=== PATIENT | male | born 1960 | race Caucasian/White ===

== ENCOUNTER 2019-07-07 14:19 | Inpatient (IN) | payer MEDICAID ==
[~2019-07-07] VITALS: Ht 175.2 cm; Wt 90.7 kg
[2019-07-07] MEDS ORDERED: ADVAIR 250/501 EA PO (15:59)
[2019-07-07] MEDS ORDERED: ATIVAN1 MG PO (15:59)
[2019-07-07] MEDS ORDERED: BENZTROPINE MESY1 MG PO (16:00)
[2019-07-07] MEDS ORDERED: DILTIAZEM240 M1 PO (16:01)
[2019-07-07] MEDS ORDERED: FLONASE ALLERG9.9 ML NAS (16:05)
[2019-07-07] MEDS ORDERED: ELIQUIS5 M1 PO (16:05)
[2019-07-07] MEDS ORDERED: MAGNESIUM400 MG PO (16:06)
[2019-07-07] MEDS ORDERED: LASIX20 MG PO (16:06)
[2019-07-07] MEDS ORDERED: OMEPRAZOLE MAGN20 MG PO (16:07)
[2019-07-07] MEDS ORDERED: MULTIVITAMINS1 EAC5 PO (16:07)
[2019-07-07] MEDS ORDERED: SPIRIVA18 MCG PO (16:08)
[2019-07-07] MEDS ORDERED: RISPERDAL3 M1 PO (16:08)
[2019-07-07] MEDS ORDERED: FLOMAX0.4 MG PO (16:09)
[2019-07-07] MEDS ORDERED: TRAZODONE100 MG PO (16:09)
[2019-07-07] MEDS ORDERED: MELATONIN3 MG PO (16:10)
[2019-07-07] MEDS ORDERED: VITAMIN E400 UNI2 PO (16:10)
[2019-07-07] MEDS ORDERED: ZYPREXA10 M2 IM (16:11)
[2019-07-07] MEDS ORDERED: POTASSIUM CHLO10 ME4 PO (16:13)
[2019-07-07] MEDS ORDERED: PROAIR HFA8.5 GM INH (16:14)
[2019-07-07] MEDS ORDERED: ZOFRAN4 MG PO (16:15)
[2019-07-07] MEDS ORDERED: TYLENOL EXTRA500 MG PO (16:22)
[2019-07-07] MEDS ORDERED: REMERON15 M2 PO (16:54)
--- NOTE | 2019-07-07 20:30 | NUR ---
DALTON BRYANT a 59 year old M admitted via stretcher from the ADMITTING as a voluntary BY POA admission. Arrived on unit at 2030. ALLERGIES: SULFA, ASPIRIN, NSAIDS. Vital signs are: 97.4-88-18 135/70 SPO2 97%RA. The client'S POA VERBALLY CONSENTED TO the following forms with stated understanding: Authorization For The Release of Medical Information, Clothing List, Consent to Voluntary Admission and Hospitalization, Consent and Release Forms/Receipt of Rights, Acknowledgement of Advance Directive Information, Behavioral Health Consent Form, and Informed Consent of Medications. WITNESSED X2 RNs. Admitted under the services of Dr. MAIN HOWELL,[facility]. A search was conducted and hazardous articles were removed. Client was oriented to the unit. ALAINA SOLANO
[2019-07-07 20:54] VITALS: BP 135/70
--- NOTE | 2019-07-07 21:12 | NUR ---
DR MCCORMICK ANSWERING PHONE FOR HOSPITALIST DR SERRANO. FULL UPDATE PROVIDED. MED REC READY FOR REVIEW
--- NOTE | 2019-07-07 21:40 | NUR ---
PT IN DINING ROOM YELLING AT STAFF ABOUT NOT BEING ABLE TO GO SMOKE AT THIS TIME. STATES "FUCK YOU BITCH, I WILL DO WHAT I WANT". PT BEGAN SPITTING ON FLOOR. PT OFFERED NAPKIN TO USE. PT CONTINUES TO OBSESS ABOUT GETTING TO SMOKE, INFORMED AGAIN THAT HE WAS GIVEN NICOTINE PATCH AND THIS IS A NONSMOKING FACILITY. PT AGITATION INCREASING, PT STARTED TO GO AFTER A STAFF MEMBER, SPITTING AT HER. SECURITY CALLED TO UNIT AT THIS TIME.
--- NOTE | 2019-07-07 21:45 | NUR ---
PT ASKED TO MOVE INTO QUIET ROOM FOR LOW STIMULATION, TWO SECURITY GUARDS PRESENT. PT REFUSING PO ATIVAN, GIVEN ATIVAN 1MG IM PER PRN ORDERS D/T INCREASED AGITATION. PT YELLING, PUNCHING, AND SPITTING ON SECURITY GUARDS. PT UNABLE TO BE REDIRECTED THROUGH ALL OTHER INTERVENTIONS.
--- NOTE | 2019-07-07 21:55 | NUR ---
PT AGITATION CONTINUES TO ESCALATE. PT PHYSICALLY AGGRESSIVE, CONTINUES TO PUNCH, HIT, SPIT, AND KICK STAFF MEMBERS. CONTINUED TO ATTEMPT TO REDIRECT PT, INEFFECTIVE. GEODON 10MG IM GIVEN PER PRN ORDER AT THIS TIME.
--- NOTE | 2019-07-07 22:00 | NUR ---
THIS CLIENT HAD EATEN A FULL SANDWICH, APPLESAUCE AND FLUIDS. HE THEN BEGAN SCREAMING AND CURSING AT EVERYONE. THREW CUP OF POP ACROSS DININGROOM. BEGAN STORMING UP AND DOWN HALLWAYS TRYING TO ELOPE. ALL NONPHARMACOLOGY ATTEMPTS FAILED. DR QUACH NOTIFIED OF INCREASED VIOLANCE, INJURING 2 SECURITY OFFICES, TRYING TO FLIP NIDIA CHAIR. SPITTING ALL OVER FLOORS AND STAFF. SCRATCHED HIS LEFT BICEPT WITH HIS NAIL TRYING TO GRAB SECURITY. INFORMED HIM THAT ATIVAN AND LENORADON IM GIVEN AND CLIENT CONTINUING TO FIGHT. ORDERS FOR THORAZINE TID AND NOW RECIEVED.
--- NOTE | 2019-07-07 22:16 | NUR ---
THORAZINE 25MG PO GIVEN AT THIS TIME PRN ONE TIME ORDER PER DR. QUACH. PT COMPLIANT WITH MUCH ENCOURAGEMENT.
--- NOTE | 2019-07-07 23:49 | NUR ---
The patient has no further display of agitation and is resting comfortably. ALAINA SOLANO
--- NOTE | 2019-07-08 04:33 | NUR ---
PT BEGINNING TO GET RESTLESS AT THIS TIME. OFFERED DRINK WHICH PT HAS ACCEPTED. PT CONTINUES IN LOW STIMULATION QUIET ROOM ACROSS FROM NURSES' STATION. PT YELLING OUT WITH SOME IRRITABILITY. STAFF MEMBER PRESENT FOR REDIRECTION..
--- NOTE | 2019-07-08 05:56 | NUR ---
PT BECOMING INCREASINGLY AGITATED. PT POUNDING ON TABLES, SPITTING, YELLING AND CURSING AT STAFF, GESTURING. PT PROVIDED WITH DRINK, AND 1:1 IN LOW STIMULATION ENVIRONMENT. INTERVENTIONS TO CALM PT MINIMALLY EFFECTIVE AT THIS TIME. WILL CONTINUE TO REDIRECT APPROPRIATE.
[2019-07-08 07:56] VITALS: BP 121/72
--- NOTE | 2019-07-08 09:29 | NUR ---
PT RECEIVED INVEGA SUSTENNA 234 MG IM TO RIGHT DELTOID PER ORDERS. PT TOLERATED WITH MINIMAL DIFFICULTY.
--- NOTE | 2019-07-08 10:31 | NUR ---
SPOKE WITH DR. STOUT AT [phone] RE: PT C/O "MY HEART HURTS". VS 98.5-119-74-134/82-91%RA. PT HAS INCREASED ANXIETY AT THIS TIME. PT CALMED WITH 1:1. PER DR. STOUT ORDER STAT EKG. NO FURTHER ORDERS AT THIS TIME.
--- NOTE | 2019-07-08 10:52 | NUR ---
SPOKE WITH DR STOUT AT [phone] RE: PT EKG COMPLETED. NO FURTHER ORDERS AT THIS TIME.
--- NOTE | 2019-07-08 13:02 | NUR ---
Nursing screen received and Occupational Therapy referral received. Thank you. Suzanne Chavarria OTR/l
--- NOTE | 2019-07-08 15:42 | NUR ---
Spoke with pt's sister/DPOAHC Natalia Yury who provided additional information. Natalia stated that pt was doing well until a few weeks ago when a med change occurred. Pt was living in a correction and attending DD workshop, which he very much enjoyed. Pt was not having behavioral outbursts. Natalia was unable to explain why the med change occurred nor what the med was. She stated that she was calling the [facility] and asking them to forward medical info of pt to [facility]. This song writer spoke to Ramos at the correction who stated that it was Depakote that pt was weaned off of and that pt was started on Invega. Ramos is to fax part of pt's chart to [facility] with supporting documentation. Notified RN of this.
--- NOTE | 2019-07-08 16:08 | NUR ---
P: PT MOOD IS LABILE. PT IRRITABLE AND AGITATED AT TIMES. PT INTRUSIVE AND DISRUPTIVE AT TIMES, YELLING OUT AND BANGING ON TABLE. PT OPBSERVED TI BE TAKING TO UNSEEN OTHERS AND PICKING AT THINGS IN THE AIR. I: PRESENT REALITY AND RE-ORIENT, PROVIDE EMOTIONAL SUPPORT AND 1:1 FOR PT TO VOICE FEELINGS, ENCOURAGE MED COMPLIANCE AND PROVIDE MED EDUCATION R: PT CONTINUES TO BE LABILE AT TIMES. PT CALMS SLIGHTLY WITH 1:1. PRESENTATION OF REALITY AND RE-ORIENTATION INEFFECTIVE, PT CONTINUES TO RESPOND TO UNSEEN OTHERS. PT ALERT TO PERSON ONLY, CONFUSION AND SHORT TERM MEMORY DEFICITS NOTED PER PT BASELINE. PT MED COMPLIANT WITHOUT DIFFICULTY, UNABLE TO PROVIDE MED EDUCATION D/T COGNITION. PT UP TO GERICHAIR, WILL AMBULATE WITHOUT ASSISTANCE AT TIMES. PT CONTINENT OF BOWEL AND BLADDE, EPISODES OF INCONTINENCE NOTED, CARE PROVIDED NEEDED. P: MONITOR PT BEHAVIORS ON Q15 MIN SAFETY CHECKS, ENCOURAGE MED COMPLIANCE, PROVIDE EMOTIONAL SUPPORT AND 1:1 FOR PT TO VOICE FEELINGS, CONTINUE TO RE-ORIENT AND PRESENT REALITY.
[2019-07-08 19:35] VITALS: BP 122/72
--- NOTE | 2019-07-08 19:47 | NUR ---
24 HR chart check completed.
--- NOTE | 2019-07-08 22:39 | NUR ---
P-IRRITABLE, DEMANDING, DISRUPTIVE, DELUSIONAL, SENSORY DISTURBANCE I-PROVIDE EMOTIONAL SUPPORT, REDIRECT, REORIENT, ADMINISTER MEDS, MONITOR SLEEP R-LABILE MOOD. IRRITABLE AT TIMES. HAS SAT IN THE DINING ROOM SINCE THE ONSET OF THE SHIFT WATCHING TV. ALERT TO PERSON ONLY. GRANDIOSE DELUSIONS. STATED THAT HE PUT THAT WINDOW IN TODAY & POINTED TO WINDOW IN THE DINING ROOM. STATED THAT HIS NAME IS NOT DALTON, BUT INSTEAD IS "CRISTIANE MOYA. HERES A BLACK MARTÍNEZ FOR YOU. I KEEP IT BURIED IN MY BELLY BUTTON". REACHED HAND OUT SEVERAL TIMES TALKING ABOUT THE BLACK MARTÍNEZ. UNRECEPTIVE TO REALITY PRESENTATION. IS SOMEWHAT DEMANDING AT TIMES FREQUENTLY ASKING FOR WATER. AUDITORY, VISUAL & TACTILE HALLUCINATIONS PRESENT. PT TALKING FREQUENTLY TO UNSEEN OTHERS. GESTURING SEVERAL TIMES WITH BLACK MARTÍNEZ. STATEMENTS REFLECT VISUAL HALLUCINATIONS. "I SEE THEM". COPYING MOVEMENTS OF ACTORS WHILE WATCHING TV. COMPLIANT TAKING MEDICATIONS. P-CONTINUE TO MONITOR & PROVIDE ASSISTANCE NEEDED.
--- NOTE | 2019-07-09 03:13 | NUR ---
PT HAS REMAINED AWAKE SITTING IN THE DINING ROOM BY HIMSELF WATCHING TV THE ENTIRE SHIFT. FREQUENTLY ASKS FOR WATER. GIVEN IN MINIMAL QUANATIES. HE HAS CONTINUED TO RESPOND TO SENSORY DISTURBANCE, AUDITORY, VISUAL & TACTILE HALLUCINATIONS APPEAR TO BE PRESENT. CONTINUES TO TALK TO UNSEEN OTHERS & GESTURE. PICKING AT THE AIR. CONTUES TO COPY ACTIONS OF ACTORS ON THE TV. HAS BEEN OFFERED ASSISTANCE TO THE BATHROOM NUMEROUS TIMES BUT HAS REFUSED TO GO AT ALL OFFERS. NO AGITATION OR ACTING OUT.
--- NOTE | 2019-07-09 06:56 | NUR ---
ASSISTED TO BATHROOM. STOOD UP WITH ASSISTANCE. STATED HE DIDNT HAVE TO VOID. DIAPER HAS BEEN DRY. REFUSED AM LABS.
[2019-07-09 07:36] VITALS: BP 114/69
--- NOTE | 2019-07-09 08:15 | NUR ---
Treatment Plan meeting with Dr. Rajput, RN, AT, and [facility]. Plan for discharge Next week. Pt. will return to [facility] Spoke with Yumiko in Admissions. Pt. has two Social Workers at facility [facility]. Yumiko states that Pt. will return to [facility] and they will assist pt. to transition to Detention Environment.
--- NOTE | 2019-07-09 10:10 | NUR ---
DR. LYNN ON UNIT TO ASSESS PT, UPDATE PROVIDED.
[2019-07-09 10:12] LABS: BASO % 0.4 % (0.0-1.0); EOS # 0.3 10*3/uL (0.0-0.4); EOS % 2.9 % (1.0-4.0); HEMATOCRIT 43.8 % (42.0-52.0); HEMOGLOBIN 14.6 g/dl (14.0-18.0); LYMPH # 1.5 10*3/uL (1.3-4.4); LYMPH % 13.9 % (27.0-41.0); MEAN CELL VOLUME 95.2 fl (80.0-94.0); MEAN CORPUSCULAR HGB 31.7 pg (27.0-31.0); MEAN CORPUSCULAR HGB CONC 33.3 g/dl (33.0-37.0); MEAN PLATELET VOLUME 8.5 fl (9.6-12.3); MONO # 0.8 10*3/uL (0.1-1.0); MONO % 7.1 % (3.0-9.0); NEUT # 8.2 10*3/uL (2.3-7.9); NEUT % 75.4 % (47.0-73.0); PLATELET COUNT AUTOMATED 358 10*3/uL (130-400); RED CELL DISTRI WIDTH 12.6 % (0-14.5); WHITE BLOOD COUNT 10.8 10*3/uL (4.8-10.8)
[2019-07-09 10:36] LABS: ALBUMIN 3.4 gm/dl (3.1-4.5); ALKALINE PHOSPHATASE 69 U/L (45-117); BUN 14 mg/dl (7-24); CHLORIDE 100 mmol/L (98-107); CHOLESTEROL 113 mg/dL (<200); CREATININE 0.76 mg/dL (0.70-1.30); HDL CHOLESTEROL 48 mg/dl (40-60); LDL CHOLESTEROL 54 mg/dL (9-159); POTASSIUM 3.9 mmol/L (3.5-5.1); SGOT/AST 18 IU/L (3-35); SGPT/ALT 21 U/L (12-78); SODIUM 135 mmol/L (136-145); TOTAL PROTEIN 7.4 gm/dL (6.4-8.2); TRIGLYCERIDES 54 mg/dl (<150); VLDL CHOLESTEROL 11 mg/dL (6-40)
--- NOTE | 2019-07-09 11:12 | NUR ---
SPOKE WITH DR. CARRENO AT [phone] RE: PT LABS AND PT NOT VOIDING FOR 12+ HOURS. ADVISED THAT PT IS CONTINENT AND CONTINUES TO STATE "I DON'T HAVE TO GO." PT RESISITIVE WITH ASSESSMENT, NO DISTENTION NOTED. PT REFUSED BLADDER SCAN. NO FURTHER ORDERS AT THIS TIME.
--- NOTE | 2019-07-09 11:50 | NUR ---
AM GROUP PT ATTENDED MORNING GROUP THERAPY AND PARTICIPATED BY SORTING AND STRINGING BEADS. PT WAS TALKATIVE AND YELLED A FEW TIMES BUT WAS EASILY REDIRECTED. PT EXHIBITED NO AGGRESSION OR AGITATION WHILE IN GROUP.
[2019-07-09 12:03] LABS: VITAMIN D, 25-HYDROXY 23.8 ng/mL (30-100)
--- NOTE | 2019-07-09 12:45 | NUR ---
P: PT HYPERTALKATIVE. PT OBSERVED TO BE SPEAKING TO UNSEEN OTHERS AND PICKING AT THINGS IN THE AIR. PT MOOD CAN BE IRRITABLE AT TIMES. PT WILL COPY MOVEMENTS OF OTHERS. PT REFUSED AM LABS I: PROVIDE EMOTIONAL SUPPORT AND 1:1 FOR PT TO VOICE FEELINGS, ENCOURAGE MED COMPLIANCE AND PROVIDE MED EDUCATION, PROVIDE EDUCATION ON REASONING FOR NEEDING LABS, PRESENT REALITY AND RE-ORIENT R: PT ALERT TO PERSON AND PLACE. PT MED COMPLIANT WITHOUT DIFFIUCLTY. PT AGREED TO LAB DRAW AFTER SPEAKING TO DR QUACH AND DR. QUACH OFFERING HIM MEDICATION TO HELP RELAX HIM. PT REMAINS IRRITABLE AT TIMES. PT CONTINUES TO COPY OTHERS MOVEMENTS. P: MONITOR PT BEHAVIORS ON Q15 MIN SAFETY CHECKS, ENCOURAGE MED COMPLINACE AND PROVIDE MED EDUCATION, CONTINUE TO PRESENT REALITY AND RE-ORIENT.
[2019-07-09 13:40] LABS: BILIRUBIN 1+ (NEGATIVE); BLOOD NEGATIVE (NEGATIVE); CLARITY CLOUDY (CLEAR); COLOR YELLOW (YELLOW); GLUCOSE NEGATIVE (NEGATIVE); KETONE NEGATIVE (NEGATIVE); LEUKO ESTERASE NEGATIVE (NEGATIVE); NITRITE POSITIVE (NEGATIVE); PH 6.5 (5.0-9.0); UROBILINOGEN 0.2 E.U./dl (0.2-1.0)
[2019-07-09 13:51] LABS: BACTERIA 1+
--- NOTE | 2019-07-09 14:27 | NUR ---
SPOKE WITH DR. CARRENO AT [phone] RE: PT UA RESULTS, PER DR. CARRENO HE WILL START HIM ON SOMETHING.
--- NOTE | 2019-07-09 15:43 | NUR ---
PM GROUP PT ATTENDED AFTERNOON GROUP THERAPY AND PARTICIPATED BY BEADING A NECKLACE. PT TALKED NONSTOP AND HAD TO BE REMINDED TO STAY ON TASK. PT TOOK A POP CAN OUT OF THE TRASH AND WHEN TOLD TO PUT IT BACK THREW A TANTRUM AND THE CAN ACROSS THE ROOM. PT DID SOME SWEARING AND THEN WAS DISTRACTABLE.
[2019-07-09 20:03] VITALS: BP 112/62
--- NOTE | 2019-07-09 20:57 | NUR ---
24 HR chart check completed.
--- NOTE | 2019-07-09 21:15 | NUR ---
REQUIRED LIMIT SETTING HE WAS SITTING IN THE DINING ROOM & VERBALLY TARGETED ANOTHER MALE PT THAT WALKED INTO THE DINING ROOM TELLING HIM TO "GET THE HELL OUT OF HERE". OTHER MALE PT RESPONDED TO HIM TO "QUIT ACTING LIKE A BABY".
--- NOTE | 2019-07-09 21:25 | NUR ---
P-IRRITABLE, DEMANDING, DISRUPTIVE, DELUSIONAL, SENSORY DISTURBANCE I-PROVIDE EMOTIONAL SUPPORT, REDIRECT, REORIENT, ADMINISTER MEDS, MONITOR SLEEP, MONITOR I & O R-LABILE MOOD. PT HAS HAD FREQUENT DEMANDS ESPECIALLY FOR DRINKS & BECOMES IRRITABLE WHEN DEMANDS ARE NOT MET. FREQUENT REDIRECTION & LIMIT SETTING. ATTENTION SEEKING & INTRUSIVE BEHAVIORS. PT DOES CALM BRIEFLY AFTER HE HAS BEEN PROMPTED TO DO SOMETHING AND BARGAINS FOR A DRINK. GAVE STAFF A PEN HE HAD IN HIS POCKET & WAS CONTINENT OF URINE WITH 300 CC OUTPUT THUS FAR. SAT IN THE DINING ROOM IN A WHEEL CHAIR WATCHING TV. ALERT TO PERSON ONLY. GRANDIOSE DELUSIONS CONTINUE. SWITCHED PT FROM A WHEEL CHAIR TO A [place] CHAIR HE WAS FALLING ASLEEP & LEANING FORWARD & REFUSING TO GO TO HIS BED. UNRECEPTIVE TO REALITY PRESENTATION. AUDITORY, VISUAL & TACTILE HALLUCINATIONS PRESENT. PT TALKING FREQUENTLY TO UNSEEN OTHERS & GESTURING SEVERAL TIMES & COPYING MOVEMENTS OF ACTORS WHILE WATCHING TV. COMPLIANT TAKING MEDICATIONS. P-CONTINUE TO MONITOR BEHAVIORS & I & O. PROVIDE ASSISTANCE NEEDED.
--- NOTE | 2019-07-10 05:01 | NUR ---
PT HAS SLEPT QUIETLY IN A GERICHAIR WITHOUT A TRAY. UPON AWAKENING HE WAS VERY DEMANDING. PROMPTED TO GO TO THE BATHROOM & WAS CONTINENT. RETURNED TO WHEELCHAIR PER HIS REQUEST. WENT INTO THE DINING ROOM & GIVEN WATER PER HIS REQUEST. BEHAVIORS OF YELLING & CRYING LOUDLY WITH NO TEARS OBSERVED. VERY ATTENTION SEEKING & DISRUPTIVE REQUIRING MUCH LIMIT SETTING. OFFERED TO TURN TV ON HE YELLED I DONT WANT TO WATCH TV YOU STUPID BITCH. FREQUENT REDIRECTION REQUIRED HE KEPT COMING OUT OF THE DINING ROOM & BEING INTRUSIVE OF A FEMALE PEERS SPACE THAT WAS SITTING NEAR NURSES STATION FOR CLOSE OBSERVATION. HEARD WHISPERING LOUDLY "I LIKE TO WATCH WOMEN SLEEP & I WANT TO LOOK UNDER HER DRESS & SUCK." HIGHLY AGITATED & ARGUMENTATIVE WITH STAFF WHEN REDIRECTED. HAS ALSO BEEN SPITTING IN THE AIR & ON THE FLOOR. TOTAL INPUT 630 OUTPUT 800.
--- NOTE | 2019-07-10 06:19 | NUR ---
PT SLEPT FROM [id number]
--- NOTE | 2019-07-10 07:00 | NUR ---
PT CONTINUED BEHAVIORS. SITTING IN THE DINING ROOM GESTURING & FREQUENTLY BEING INTRUSIVE. RESTLESS & EASILY AGITATED. MEDICATED WITH ATIVAN 1 MG PO @ 0635
[2019-07-10 07:32] VITALS: BP 138/60
--- NOTE | 2019-07-10 07:45 | NUR ---
attempted to do satx..pt put mask on then kept taking it off and throwing it satx stopped due to pt being not cooperative
--- NOTE | 2019-07-10 08:45 | NUR ---
P: VERBAL AND PHYSICAL AGGRESSION: CALLING STAFF NAMES, DEMENDING AND ARGUEMENTATIVE ON EVERYTHING. STOMPING FEET ON FLOOR. MENTAL HEALTH WORKER CALL OUT FOR ASSISTANCE. PATIENT WAS TWISTING MENTAL HEALTH WORKER'S HAND, THREW DRINK ON THE FLOOR. PATIENT IS CURRENTLY ON A FLUID RESTRICTION OF 1500CC/DAY. PATIENT ATE 100% OF BREAKFAST AND 360CC OF DRINK. PATIENT DEMENDED FOR BREAKFAST. DISRUPTIVE/INTRUSIVE. TO MILIEU; PATIENT IN QUIET ROOM ONE ON ONE WITH NURSE. SLIGHT PARANOIA, LISTENING TO OTHERS IN DINING AND RESPONDING, THINKING THEY ARE LAUGHING AT HIM. I: ONE ON ONE, REDIRECTION, PROVIDED SPACE, LIMIT SETTING, ENCOURAGED PATIENT TO BE IN QUIET ROOM, ENCOURAGED COLORING ACTIVITY. ANOTHER BREAKFAST TRAY ORDERED FOR PATIENT. R: PROVIDING SPACE MINIMALLY EFFECTIVE. PATIENT IS ALERT TO SELF; ABLE TO VOICE NEEDS. REFUSED TO PARTICIPATE WITH MORNING INTERVIEW. NO RESPONSE TO INTERNAL STIMULI. NO VOICED STATEMENT OF HI/SI OR PAIN. MOOD IS ARGRY IRRITABLE, LABILE; DEMENDING AND INTRUSIVE. Q 15 MINUTE SAFETY CHECKS MAINTAINED. MEDICATION COMPLAINT WITH EDUCATION PROVIDED. 1-2 PERSON ASSIST WITH ACTIVITIES OF DAILY LIVING, CONTINENT OF BOWEL AND BLADDER. SET UP FOR MEALS, INTAKES ARE GOOD WITH ADEQUATE FLUIDS. PATIENT SELF PROPELS IN WHEELCHAIR. ABLE TO AMBULATE AT WILL WITHOUT DIFFICULTY. P: CONTINUE TO MONITOR FOR VERBAL AND PHYSICAL AGGRESSION, OUTBURST. PROVIDE ONE ON ONE, REDIRECTION/ORIENTATION AND LIMIT SETTING NEEDED
--- NOTE | 2019-07-10 09:14 | NUR ---
PATIENT CONTINUE TO BE DISRUPTIVE AND INTRUSIVE. YELLING AT NURSE, STATING "FUCK YOU" THEN, "I DON'T LOVE YOU ANYMORE" WITH REDIRECTION AND LIMIT SETTING. PROVIDED PATIENT WITH BREAKFAST TRAY THAT HE STATED HE DID NOT GET. SECURITY ON UNIT, PATIENT YELLING AT STAFF, REFUSED BREAKFAST AND THREW THE TRAY ON THE FLOOR. PATIENT GRABBED THE DOOR TO QUEIT ROOM AND ATTEMPTED TO SHUT THE DOOR TOWARDS THE NURSE WITH AGGRESSION. PATIENT YELLING AND SPITTING TOWARDS NURSE. ONE ON ONE AND REDIRECTION INEFFECTIVE. UNABLE TO REDIRECTION PATIENT. PATIENT GIVEN ATIVAN 3 HRS PRIOR. PRN GEODON 20MG IM GIVEN TO LEFT DELTOID WITH ASSISTANCE OF SECURITY. PATIENT CONTINUES TO BE IMPULSIVE, DISRUPTIVE, YELLING OUT IN HALLWAY. MIGRATION SPECIALIST ON UNIT UNITL PATIENT CALMED DOWN.
--- NOTE | 2019-07-10 09:57 | NUR ---
DR. VELIZ ON UNIT TO ASSESS PATIENT.
--- NOTE | 2019-07-10 10:20 | NUR ---
JUAN RAMON BAEZ EFFECTIVE. PATIENT IS CALM DEMEANOR. ASSISTED TO NIDIA CHAIR, RECLINED FOR COMFORT, RESTING WITH EYES CLOSED.
--- NOTE | 2019-07-10 11:13 | NUR ---
pt sleeping in wheelchair near the nurses desk I asked the RN if she wanted me to wake him up for satx she stated that if he needs it when he wakes up she will let me know
--- NOTE | 2019-07-10 11:54 | NUR ---
AM GROUP/CARDS/MUSIC PT DID NOT ATTEND THE FIRST HALF OF GROUP DUE TO SLEEPING IN THE STEVEN. PT WOKE AND ENTERED DAYROOM HALF WAY THROUGH GROUP ASKING EVERYONE TO GET HIM A DRINK AFTER BEING TOLD HE CANT HAVE ANYTHING TO DRINK UNTIL LUNCH. PT ATTEMPTED TO PLAY CARDS BUT STARTED TO FALL ASLEEP AGAIN AND EXITED DAYROOM TO NOT RETURN.
--- NOTE | 2019-07-10 14:00 | NUR ---
P: PHYSICAL AGGRESSION TOWARDS STAFF. PATIENT ASSISTED TO QUIET ROOM TO LISTEN TO RADIO. PATIENT SINGING TO RADIO AND TOOK ROUTINE MEDICATION. PATIENT WENT INTO DINING TO PARTICIPATE IN GROUP TO WATCH MOVIE WITH REST OF THE PATIENTS. PATIENT STARTED CURSING YELLING "YOU FUCKING BITCH" TO TREE CLIMBER, DISRUPTIVE TO GROUP. PATIENT ASSISTED INTO QUIET ROOM WITH LOW STIMULI. RADIO REMOVED D/T AGGRESSIVE IMPULSES. PATIENT CHARGING TOWARDS NURSE, ATTEMPTING TO INTIMIDATE NURSE. THREATENING TO HIT NURSE AND STAFF. SECURITY CALLED FOR ASSISTANCE. PATIENT THREW SODA POP ALL OVER THE PLACE. PATIENT HITTING AND ATTEMPTING TO BITE NURSING STAFF. PATIENT BANGING ON WINDOW DOOR OF QUIET ROOM. SECURITY ON UNIT TO ASSURE SAFETY OF PATIENTS AND STAFF. I: ONE ON ONE, REDIRECTION, CHANGE OF ENVIROMENT, LIMIT SETTING AND ASKED TO LOWER VOICE. R: INEFFECTIVE. PATIENT CONTINUES WITH OUTBURST, BANGING ON DOOR WINDOW AND CURSING. PRN GEODON 20MG IM TO LEFT DELTOID. CONTINUED TO MONITOR BEHAVIORS. SECURITY ON UNIT TO MAINTAIN PATIENT/STAFF SAFETY. WITH SECURITY PRESENT PATIENT LOWER TONE OF VOICE, ASKING TO GO INTO DINING TO SEE HIS GIRLFRIEND- REFERRING TO TREE CLIMBER. PATIENT REOREINTED/REDIRECTED. PATIENT ASKED FOR SOMETHING ELSE TO EAT AND DRINK. PATIENT PROVIDED WITH A SANDWICH AND 240CC OF WATER. P: CONTINUE TO MONITOR FOR AGGRESSION, IMPULSIVITY: PROVIDE ONE ON ONE, REDIRECTION/REORIENTATION, LIMIT SETTING NEEDED.
--- NOTE | 2019-07-10 14:20 | NUR ---
THEODORA PECK UPDATED ON GIVING PT SECOND GEODON AND REQUESTED MEDICATION FOR A LATER TIME IF NEEDED. UPDATED THEODORA ON PT'S BEHAVIOR THAT WARRANTED A PRN. NEW ORDER RECEIVED FOR VISTARIL 50 MG PO OR IM Q4PRN .
--- NOTE | 2019-07-10 14:36 | NUR ---
DR LOPEZ UPDATED ON PT'S CONDITION.
--- NOTE | 2019-07-10 15:00 | NUR ---
JUAN RAMON BAEZ EFFECTIVE, PATIENT HAS A CALM DEAMOR, LOWER TONE OF VOICE. TALKING WITH MALE SECURITY GURADS IN QUIET ROOM.
--- NOTE | 2019-07-10 15:39 | NUR ---
PM GROUP/MOVIE PT STARTED OUT BY LISTENING TO MUSIC IN QUIET ROOM FOR ABOUT 5 MINUTES. PT THEN DECIDES TO COME INTO ACTIVITY ROOM AND JOIN GROUP. MATTHIAS WARNED PT IF HE MAKES ONE SOUND THEN HE HAS TO GO BACK TO THE QUIET ROOM. PT THEN ESCALATED AND STARTED CUSSING. MATTHIAS TOOK PT OUT OF ROOM THE REMAINDER OF GROUP. PT WILL BE ENCOURAGED TO ATTEND AND PARTICIPATE IN FUTURE GROUP SESSIONS TO BEST OF ABILITY.
--- NOTE | 2019-07-10 15:51 | NUR ---
P: VOICED DELUSIONAL THOUGHTS: PATIENT CAME UP TO NURSES STATION WANTING TO CALL HIS GIRLFRIEND, MITCHELL BAHENA. THEN RECALLED HIS GIRLFRIEND BLONDE. I: ONE ON ONE, REORIENTATION AND REALITY PRESENT. NURSING STAFF LOOKING UP NUMBERS TO CALL HIS FRIENS PER REQUEST. R: EFFECTIVE; PATIENT LOWER TONE OF VOICE AND WAS REDIRECTABLE AT THIS TIME. P: CONTINUE TO MONITOR FOR HALLUCINATIONS/DELUSIONS; PROVIDE ONE ON ONE, REORIENTATION/DIRECTIONS NEEDED.
--- NOTE | 2019-07-10 16:01 | NUR ---
Shift chart check completed.
[2019-07-10 19:55] VITALS: BP 139/88
--- NOTE | 2019-07-10 22:30 | NUR ---
Patient alert to self with confusion noted. Patient is calm now but can be irritable,demanding,intrusive and attention seeking. 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 Patient compliant with medications without any difficulty. Redirected/reoriented patient when needed/appropriate. Plan to continue to encourage medication compliance. Also continue to redirect/reorient when needed/appropriate. Will continue to monitor behaviors. Q 15 minute safety checks continued and maintained. See [facility] flowsheet for further documentation.
--- NOTE | 2019-07-11 00:01 | NUR ---
Patient continuously being intrusive and disruptive. Patient talking constantly,yelling out at times,cursing at staff,demanding,and gesturing. Redirected patient by offering snacks,playing music,watching a movie,and telling him to be quiet because other patients are trying to sleep. Patient becomes more agitated with each redirection. All non-pharmacological interventions unsuccessful. Medicated with Vistaril po prn as ordered for anxiety/agitation. Will continue to monitor behavior.
--- NOTE | 2019-07-11 05:34 | NUR ---
Patient slept 0 hours throughout shift. Patient continued to be disruptive and intrusive entire shift. Approached nurses' desk multiple times. Patient continuously talkative. Redirection unsuccessful due to patient has tantrums when limits are set. Vistaril was ineffective. Will continue to monitor behavior. Q 15 minute safety checks continued and maintained.
[2019-07-11 07:32] VITALS: BP 126/68
--- NOTE | 2019-07-11 08:50 | NUR ---
P: HYPERTALKATIVE, DISRUPTIVE, VULGAR LANGUARGE, ARGUMENTATIVE WITHOUT PROVICATION, ATTENTION SEEKING, SEEKING OUT PEERS TO ANTAGONIZE, POLYDIPSIA I: SPOKE WITH PT THIS MORNING IN REFERENCE TO EXPECTED ACCEPTABE BEHAVIORS ON MILIEU SUCH NOT TO DISTURB OTHER PT DURING BREAKFAST OR WHEN INTERACTING WITH OTHER STAFF MEMBERS, PT INFORMED THAT THROWING FOODS IS UNACCEPTABLE AND DUE TO BEHAVIOR PREVIOUS DAY HE WOULD NOT BE PERMITTED TO SIT WITH THE PEERS TO CONSUME HIS MEAL. VULGAR LANGUAGE DISCUSSED, STAFF MONITORING I&O INTAKE TO ENSURE PT CAN HAVE BEVERAGES THROUGHOUT THE DAY PER 1500 RESTRICTION, ENCOURAGE POSITIVE BEHAVIORS AND ACTIVITIES TO DECREASE BEHAVIORS. R: PT CONTINUES TO BE HYPERTALKATIVE AND USES VULGAR WORDS FREQUENTLY, PT VOICE IS HOARSE FROM TALKING ALL NIGHT AND NON STOP THIS AM. PT REFUSED HIS BREAKFAST. PEERS WERE TALKING WITH DIETARY STAFF, THIS PT WOULD APPROACH TALKING AND MIMICING THE PEERS DIET ORDER FOR THE DAY, GETTING LOUDER AND LOUDER WHEN ATTENTION NOT GIVEN TO HIM. PT ALSO STARTED TO YELL AT MENTAL HEALTH WORKER BECAUSE SHE WOULD NOT LET HIM KEEP DVD'S. REDIRECTED BY THIS NURSE. P: CONTINUE TO WORK WITH PT WITH LIMIT SETTINGS AND RESPONSE TO THEM, CONTINUE TO REDIRECT, NEEDED. NO HI/SI OR DELUSIONS NOTED AT THIS TIME. CONTINUE WITH 15 MIN CHECK MONITORING
--- NOTE | 2019-07-11 10:37 | NUR ---
PATIENT RECIEVED INVEGA 156MG IM TO LEFT DELTOID AND TOLERATED WELL.
--- NOTE | 2019-07-11 10:45 | NUR ---
DR. VELIZ ON UNIT TO ASSESS PATIENT.
--- NOTE | 2019-07-11 15:00 | NUR ---
PT PARTICIPATING IN GROUP ACTIVITES WITH MENTAL HEALTH WORKERS, ANSWERING RIDDLES AND QUESTIONS WITH HIS PEERS.
--- NOTE | 2019-07-11 15:48 | NUR ---
Shift chart check completed.
--- NOTE | 2019-07-11 16:00 | NUR ---
PT HAS BEEN ABLE FOLLOW DIRECTIONS THROUGHOUT THE DAY WITH BRIEF EPISODES OF LOSING HIS TEMPER. PT HAS TOLERATED REDIRECTION WITH FIRM VOICE AND REMINDER OF WHAT IS ACCEPTABLE AND UNACCEPTABLE. PT HAS JOKED WITH THIS NURSE AND FOLLOWED SIMPLE DIRECTIONS TO CALM DOWN AND REMOVE HIMSELF FROM HIGH STIMULATION WHEN INAPPROPRIATE. PT HAS PERMITTED "FIST BUMPS" AND THIS NURSE TO REDIRECT HIS CHAIR THROUGHOUT THE DAY WHICH CAN TRIGGER HIM TO BECOME UPSET AT TIMES. PT HAS REQUESTED FREQUENT DRINKS, CONTINUE TO MONITOR HIS INTAKES PER ORDER. PT VOICE IS HOARSE DUE TO HYPERTALKATIVE. SNACK OFFERED PER REQUEST AND PT WANTED TO LISTEN TO MUSIC, WHEN IT WAS PLAYED ON THE [employer] FOR THE CHARO INSTEAD OF ON A PERSONAL RADIO FOR HIM HE THREW ICE ACROSS DINING ROOM. THIS NURSE DIRECTED HIM DOWN TO HIS ROOM TO ATTEMPT TO REST EYES ARE BLOOD SHOT AND AT TIMES EYELIDS APPEAR HEAVY WITH FATIQUE, ATTEMPTED TO GET PT TO REST WITHOUT SUCCESS "THIS IS NOT MY BED, MY BED IS MADE OF WOOD, THIS IS NOT MY BED"
--- NOTE | 2019-07-11 16:20 | NUR ---
PT RETURNED FROM HIS ROOM TO NURSES STATION, RAMBLING WITH HOARSE VOICE, INTERUPTING A PEER FROM THEIR CONVERSATION TO NURSE. SWEARING AND BECAME AGITATED HITTING NURSES STATION WITH HIS SHOES "FUCK YOU! I AM NOT TIRED" INCREASED PROPELLING THROUGH HALLWAY AND INABILITY TO REDIRECT HIM, SPEECH HAD BECOME MORE RAPID WITH GESTURED HANDS. ATIVAN 1 MG PO GIVEN FOR ANXIETY
--- NOTE | 2019-07-11 16:50 | NUR ---
PT FOLLOWING THIS NURSE, BECOMES UPSET WHEN THIS NURSE COMMUNICATES WITH OTHER PT OR IF HE IS NOT GETTING INTERACTIONS. PT THREW HIS BOOK 3 TIMES IN HALLWAY WHEN UPSET DUE TO MEDICATION PASSES TO PEERS, PT PLEASANT COOPERATIVE WITH THIS NURSE LONG HE IS FOCUS OF ATTENTION. ATTEMPTING TO REDIRECT POSSIBLE.
--- NOTE | 2019-07-11 17:11 | NUR ---
PT GARBLED MUMBLED SPEECH HAS SLOWED, WITH LESS AGITATION ATIVAN HAS BEEN SLIGHTLY EFFECTIVE, PT CONTINUES TO KNOCK ON NURSES WINDOW AND BE INTRUSIVE WITH LESS ANGER AND IMPATIENCE NOTED AT THIS TIME.
--- NOTE | 2019-07-11 20:05 | NUR ---
Patient resting quietly with eyes closed in quiet room across from nurses desk. Will continue to observe patient for behaviors.
--- NOTE | 2019-07-11 20:18 | NUR ---
Patient refused vital signs for 1999.
--- NOTE | 2019-07-11 21:55 | NUR ---
Patient still resting quietly with eyes closed. No signs or symptoms of any stress noted at this time. No adverse behaviors noted. Q 15 minute safety checks continued and maintained. See [facility] flowsheet for further documentation.
--- NOTE | 2019-07-11 23:20 | NUR ---
Patient woke up from sleep. Administered HS meds to patient and patient was compliant with medications. Offered patient sandwich for snack but patient refused snack. Patient hyperverbal and intrusive. Attempted to redirect but unsuccessful. Will continue to monitor for escalating behaviors.
--- NOTE | 2019-07-12 00:17 | NUR ---
Medicated with Tylenol po prn for c/o headache. Will monitor effectiveness.
--- NOTE | 2019-07-12 00:27 | NUR ---
24 HR chart check completed.
--- NOTE | 2019-07-12 01:22 | NUR ---
Patient's behavior becoming increasingly more agitated. Multiple attempts of redirection unsucessful. Patient throwing cup with ice on floor when limits were set. Patient attempted to tip over bedside table. Redirected patient by talking about music. Patient calmed down slightly after talking about music. Was able to redirect patient to watch TV. Patient watched TV for 5 minutes then came out to nurses desk being hyperverbal with staff. Will continue to monitor for escalating behaviors.
--- NOTE | 2019-07-12 02:55 | NUR ---
Patient increasing agitation and aggressive behavior noted. Patient yelling and cursing at staff. Patient throwing cups of ice at staff in hallway and attempting to tip over furniture. Attempted to redirect patient multiple times with 1:1 therapeutic communication,offered snacks,taking shower,and watching a movie on TV. All attempts were unsuccessful. Patient punched the window at nurses desk. Attempted to redirect patient again but unsuccessful.
--- NOTE | 2019-07-12 03:10 | NUR ---
Called and notified nursing supervisor asbestos textile,Delfina Brink,of patient escalating behavior. Diane davis called. Geodon 20mg IM given as per doctor's order for increasing agitation and anxiety. Will continue to monitor behavior.
--- NOTE | 2019-07-12 04:15 | NUR ---
Patient slightly calmer but continues to yell out and be verbally aggressive towards staff. Osiel minimally effective. Will continue to monitor behavior.
--- NOTE | 2019-07-12 05:31 | NUR ---
Patient slept approx. 4 hours of interrupted sleep. Q 15 minute safety checks continued and maintained.
--- NOTE | 2019-07-12 09:56 | NUR ---
PT IN HALLS YELLING AT STAFF, PUNCHED WINDOW TO DINING AREA. PT ARGUMENTATIVE WITH PEERS AND STAFF, TELLING THEM TO "SHUT UP" AND STATING HE WOULD "KNOCK THEM ON THEIR ASS" PT REDIRECTED, OFFERED DRINK AND SNACK, TAKEN TO BATHROOM, PROVIDED WITH LIMIT SETTINGS AND BOUNDARIES, EDUCATED ON UNIT RULES AND EXPECTATIONS. LIMIT SETTING SOMEWHAT EFFECTIVE. PT BECOMES AGITATED WITH REDIRECTION. PT CONTINUES TO YELL WITH SLURRED SPEECH, VULGAR. WILL CONTINUE TO REDIRECT AND ENCOURAGE PT TO CALMLY VERBALIZE FEELINGS IN LIEU OF YELLING VULGARITIES. WILL PROVIDE MEDICATIONS PRESCRIBED. Q15 MIN MONITORING PER POLICY. FALLING STAR PROGRAM MAINTAINED.
--- NOTE | 2019-07-12 10:31 | NUR ---
Treatment plan meeting held with Dr Rajput, RN, MANAGER RISK-S, and continuous improvement coordinator. Discharge date undetermined at this time. Will return to [facility] upon discharge.
--- NOTE | 2019-07-12 10:43 | NUR ---
PT CONTINUES WITH AGGRESSIVE BEHAVIOR, PUNCHING THE NURSES' STATION WINDOW MULTIPLE TIMES. PT FIRMLY REDIRECTED. BEGAN TO ARGUE AND THEN PROPELLED SELF INTO GROUP ACTIVITY, CALMED AFTER REDIRECTION.
--- NOTE | 2019-07-12 11:22 | NUR ---
Clinical update faxed to Yumiko's attention at [facility].
--- NOTE | 2019-07-12 11:46 | NUR ---
AM GROUP PT WAS IN AND OUT OF THE GROUP ROOM. PT WAS DISRUPTIVE, FIGHTING WITH A FEMALE PEER, SPITTING AND BEING DEMANDING. PT REPEATEDLY ASKED FOR THE DECK OF CARDS WE WERE PLAYING WITH AND WHEN TOLD NO RESPONDED, "FUCK YOU! YOU BITCH! I HATE YOU!" AND WHEELED HIS WAY OUT OF THE ROOM. PT COULD NOT BE REDIRECTED.
--- NOTE | 2019-07-12 11:54 | NUR ---
PT REFUSED LAB WORK DESPITE MULTIPLE REAPPROACHES AND EDUCATION.
--- NOTE | 2019-07-12 14:14 | NUR ---
PHYSICAL THERAPY Pt participating in activity. Will attempt later Carlee Shen, PT, DPT
--- NOTE | 2019-07-12 14:15 | NUR ---
Occupational therapy orders received and chart reviewed. Patient was in group upon OT arrival. Will follow up with patient for completion of OT eval. Thank you. Marline Dimas, OTR/L
--- NOTE | 2019-07-12 15:48 | NUR ---
PM GROUP PT WAS IN AND OUT OF GROUP. PT WAS VERY AGITATED, ALMOST LOOKING FOR SOMETHING TO BE MAD ABOUT. PT WAS SWEARING AND POUNDING ON THE TABLE, THROWING THINGS AND THEN SAYING, "I LOVE YOU" PT WAS VERY LABILE. PT COULD NOT BE REDIRECTED.
--- NOTE | 2019-07-12 20:02 | NUR ---
DURING GROUP CLIENT THROUGH A CUP OF WATER ACROSS ROOM, SPIT ON MILIEU. FIGHTING STAFF. UNABLE TO REDIRECT. SECURITY CALLED, NESTOR GIVEN PER ORDERS PLACED IN NIDIA CHAIR AND ACROSS FROM [facility] STATION FOR CLOSER MONITORING. MANAGER OF CONSTRUCTION SANGITA BRUNO NOTIFIED.
--- NOTE | 2019-07-12 20:34 | NUR ---
EVENING/RELAXTION/STORY/MUSIC PT ATTENDED THE FIRST HALF OF GROUP AND ASKED TO HAVE NAILS PAINTED THIS STAFF PAINTED PT'S NAILS. PT IN AND OUT OF ACTIVITY ROOM AT THIS TIME, AND REJECTED ANY ACTIVITY THIS STAFF OFFERED. PT THEN ASKED THIS STAFF FOR SOMETHING TO DRINK THIS STAFF EXPLAINS THAT THE NURSES HAVE TO "OKAY" ANY FLUIDS THE PT INTAKES DUE TO RESTRICTIONS. PT BECOME UPSET AND THREW CUP ON FLOOR. THIS STAFF IGNORED PT. PT THEN ASKED TO WORK ON BEADING THIS STAFF GAVE PT BEADS TO WORK WITH AND IMMEDIATLEY AFTER PT ASKS ABOUT DRINK AGAIN. THIS STAFF WAS GOING TO ASK NURSES/MATTHIAS IF PT IS ABLE TO HAVE SOMETHING PT THROWS CUP WITH A LITTLE WATER AND ICE ACROSS ROOM AND THROWS CUP OF BEADS ALL OVER THE FLOOR. THIS STAFF TELLS PT HE CAN'T STAY IN ACTIVITY ROOM ANYMORE DUE TO BEHAVIORS. GUTIERREZ WITNESSED PT THROWING CUP AND BEADS AND CAME TO ASSIST PT OUT AND PT SPIT ON MATTHIAS. PT NOW BEING MONITORED BY NURSING STAFF.
[2019-07-13] VITALS: BP 114/67
--- NOTE | 2019-07-13 02:41 | NUR ---
HAS BEEN POUNDING ON TABLE AND CURSING AT STAFF FOR OVER AND HOUR. UNABLE TO REDIRECT AT THIS TIME.
--- NOTE | 2019-07-13 05:00 | NUR ---
INCONTINENT OF URINE. CHANGED WITH ASSIST OF 3. CLIENT CONTINUES TO CUSS STAFF OUT. SPEECH THICK AND SLURRED. ASKING FOR FOOD. SNACK GIVEN TO HIM AND HE THREW IT ACROSS THE DININGROOM. CONTINUES TO GROWL AND YELL AT STAFF AND OTHERS
--- NOTE | 2019-07-13 05:07 | NUR ---
WALKING IN HALLWAY ATTEMPTING TO GET AT NEW MILIEU. SANDRA MUSE GIVEN [place]UC[place] AGO. PUNCHING AT STAFF. BACK INTO NIDIA CHAIR
--- NOTE | 2019-07-13 06:00 | NUR ---
NO EFFECT FROM VISTARIL AT THIS TIME. CHANTING AND BANGING ON TRAY. SLEPT ONLY A FEW HOURS THIS SHIFT. SPITTING AT STAFF AND ON FLOOR
--- NOTE | 2019-07-13 08:06 | NUR ---
PT STANDING IN THE HALLWAY, SPEAKING NON-SENSICAL, PT THEN THREW CUP OF WATER AGAINST THE WALL/WINDOWS IN THE STEVEN. PT YELLING OUT AND PACING AT THIS TIME. WILL CONTINUE TO MONITOR PT BEHAVIORS.
--- NOTE | 2019-07-13 08:12 | NUR ---
PT REFUSED AM VITALS, MULTIPLE ATTEMPTS MADE BY STAFF.
--- NOTE | 2019-07-13 08:30 | NUR ---
Treatment Plan meeting with Dr. Rajput, RN, AT, SW and Electric Blanket Packer. Plan for discharge Next week. Pt. will return to [facility] at discharge.
--- NOTE | 2019-07-13 08:35 | NUR ---
DR. QUACH ON UNIT, NEW ORDERS RECEIVED FOR ATIVAN 2MG IM NOW. ATIVAN GIVEN PER ORDERS WILL MUCH ENCOURAGEMENT.
--- NOTE | 2019-07-13 11:29 | NUR ---
DR. VELIZ ON UNIT TO ASSESS PT, UPDATE PROVIDED.
--- NOTE | 2019-07-13 11:46 | NUR ---
AM GROUP PT WAS PRESENT FOR MORNING GROUP THERAPY DESPERATELY FIGHTING SLEEP. PT REQUESTED A POP AND WAS TOLD TO SIT IN A COMFY CHAIR. PT PROMPTLY FELL ASLEEP AND SLEPT THE ENTIRE TIME.
--- NOTE | 2019-07-13 14:20 | NUR ---
[facility] staff; Josseline reports that patient has had behaviors today and has been medicated d/t behaviors. Patient is not appropriate for Occupational Therapy this date. Suzanne Chavarria OTR/l
--- NOTE | 2019-07-13 15:59 | NUR ---
PM GROUP PT DID NOT ATTEND AFTERNOON GROUP THERAPY. PT WAS NAPPING IN THE QUIET ROOM
--- NOTE | 2019-07-13 17:38 | NUR ---
PT YELLING OUT, CURSING, SPITTING AT STAFF, POUNDING ON TABLE, THROWING FOOD, SWINGING OUT AT STAFF. 1:1 PROVIDED. PT MEDICATED WITH ATIVAN 1 MG PO PRN PER ORDERS. WILL CONTINUE TO MONITOR PT BEHAVIORS.
--- NOTE | 2019-07-13 20:34 | NUR ---
EVENING/BINGO/STORY PT UNABLE TO ATTEND DUE TO DISRUPTINTG TO OTHER PT'S. PT NOT RESOPONDING WELL TO REDIRECTION OR REASSURANCE. PT WILL BE ENOCURAGED TO ATTEND AND PARTICIPATE IN GROUP WHEN LESS DISRUPTIVE TO PEERS.
--- NOTE | 2019-07-13 23:40 | NUR ---
24 HR chart check completed.
--- NOTE | 2019-07-14 03:04 | NUR ---
MORE COOPERATIVE. CHANGED CLOTHING WITH MINIMAL ASSISTANCE. REQUESTING FOOD AND DRINK WHICH IS BEING PROVIDED.
--- NOTE | 2019-07-14 03:07 | NUR ---
FOOD AND DRINK PROVIDED. HE THEN STARTED YELLING AND POUNDING ON TABLE BECAUSE IT WASN'T THE QUALITY OR QUANTITY HE WANTED. UNABLE TO REDIRECT
[2019-07-14 07:52] VITALS: BP 146/80
--- NOTE | 2019-07-14 08:30 | NUR ---
Treatment Plan meeting with Dr. Rajput, RN, AT, SW and Senior Solutions Architect. Plan for discharge Next week. Pt. will return to [facility].
--- NOTE | 2019-07-14 10:47 | NUR ---
DR. VELIZ ON UNIT TO ASSESS PT, UPDATE PROVIDED.
--- NOTE | 2019-07-14 11:55 | NUR ---
AM GROUP/MUSIC AND LIGHT THERAPY PT ATTENDED MORNING GROUP THERAPY AND SAT AT A TABLE WITH THIS INDUSTRIAL HYGENIST. PT DECLINED ANY ACITIVITY OFFERED BUT WAS LESS DISRUPTIVE AND INTRUSIVE THIS MORNING THAN PREVIOUSLY. PT DEMANDED SOME MUSIC THAT I DID NOT HAVE AND DECIDED TO SING TO ME WHICH HE DID FOR 20 MINUTES AND THEN FELL ASLEEP. PT EXHIBITED NO AGGRESSION AND VERY LITTLE AGITATION WHILE IN GROUP.
--- NOTE | 2019-07-14 14:32 | NUR ---
Patient seated in recliner with LEs elevated, perseverating about his w/c, rampling and mildly agitated. Nursing reports that patient recently fell to floor when he attempted to transfer from w/c without locking brakes. OTR will attempt evaluation at a later date. Suzanne Chavarria OTR/L
--- NOTE | 2019-07-14 15:42 | NUR ---
PM GROUP PT WAS NOT SUITABLE FOR GROUP THERAPY THIS AFTERNOON. PT WAS IN THE HALLWAY YELLING NONSTOP.
--- NOTE | 2019-07-14 16:31 | NUR ---
Shift chart check completed.
[2019-07-14 19:59] VITALS: BP 142/83
--- NOTE | 2019-07-14 21:23 | NUR ---
Patient resting quietly with eyes closed. No signs or symptoms of any stress noted at this time. No adverse behaviors noted. Q 15 minute safety checks continued and maintained. See [facility] flowsheet for further documentation.
--- NOTE | 2019-07-15 00:23 | NUR ---
Patient was watching TV and having a snack and drink. Patient became disruptive by throwing food and drink all over dining room,cursing,swinging at staff,spitting and striking out. Security was called. All staff had face masks on. All non-pharmacological interventions ineffective. Medicated with Ativan 1mg IM given as ordered for anxiety/agitation. Will continue to monitor behavior.
--- NOTE | 2019-07-15 01:45 | NUR ---
Patient resting quietly in chair with eyes closed. No signs of any distress noted at this time. Will continue to monitor behavior.
--- NOTE | 2019-07-15 02:56 | NUR ---
24 HR chart check completed.
--- NOTE | 2019-07-15 05:03 | NUR ---
Patient is awake and has urinated all over floor. Staff taking patient into shower room to get cleaned up. Will continue to monitor behavior.
--- NOTE | 2019-07-15 05:07 | NUR ---
Patient slept approx. 6 hours of interrupted sleep. Q 15 minute safety checks continued and maintained.
[2019-07-15 08:00] VITALS: BP 133/81
--- NOTE | 2019-07-15 09:45 | NUR ---
Discharge Plan Remains unchanged. Pt. will return to [facility] with Discharge Planned for Next week.
--- NOTE | 2019-07-15 11:40 | NUR ---
AM GROUP PT WAS PRESENT AT THE START OF MORNING GROUP THERAPY AND REQUESTED THE SUPPLIES TO DO BEADING. PT BEGAN WORKING BUT WAS FALLING ASLEEP AND ASKED ME TO TAKE THEM AWAY. PT WAS CALM AND QUIET BUT SUDDENLY GOT UP TO LEAVE THE ROOM AND WAS DIRECTED BACK IN BY MENTAL HEALTH WORKER. PT BECAME AGITATED AND WAS SWATTING AT HER AND WHEN HE SAT DOWN SPILLED CHOCOLATE MILK AND BEGAN THROWING IT ACROSS THE ROOM. PT WAS REMOVED FROM THE DAYROOM
--- NOTE | 2019-07-15 15:39 | NUR ---
PM GROUP PT WAS PRESENT FOR AFTERNOON GROUP THERAPY AND WAS VERY AGITATED. PT WAS SITTING UPRIGHT IN A NIDIA CHAIR AND COMPLAINING LOUDLY BUT NOT UNDERSTANDABLE. PT EVENTUALLY FELL ASLEEP AND SLEEP SOUNDLY FOR THE REMAINDER OF THE GROUP AT LEAST 2 HOURS.
--- NOTE | 2019-07-15 22:15 | NUR ---
P-YELLING OUT I-REDIRECTION WITH 1:1 THERAPEUTIC INTERVENTIONS. EDUCATE AND ENCOURAGE MEDICATION COMPLIANCE R-PATIENT YELLING OUT INTERMITTENTLY THROUGHOUT SHIFT. PATIENT REDIRECTED AND PROVIDED 1:1 THERAPEUTIC INTERVENTIONS AND WAS ABLE PROVIDE DIVERSIONAL ACTIVITIES WITH WATCHING TELEVISION. PATIENT PROVIDED NOURISHMENT AND FLUIDS AT HS. P-CONTINUE TO ENCOURAGE MEDICATION COMPLIANCE, ENCOURAGE GROUP THERAPY WHILE AWAKE
--- NOTE | 2019-07-16 02:58 | NUR ---
PATIENT THROWING FLUIDS AND OBJECTS AROUND IN DINING AREA. PATIENT YELLING OUT AND GROWLING. PATIENT TOILETED. UNABLE TO REDIRECT PATIENT WITH 1:1 THERAPEUTIC INTERACTIONS AND DIVERSIONAL ACTIVITIES. PATIENT MEDICATED WITH VISTARIL 50MG PO WITH INEFFECTIVE RESULTS AT THIS TIME. PATIENT RESTLESS BUT TOLERATING FLUIDS AT THIS TIME
--- NOTE | 2019-07-16 05:49 | NUR ---
PATIENT SLEPT 6 HOURS OF INTERRUPTED SLEEP THROUGHOUT SHIFT. Q 15 MINUTE CHECKS MAINTAINED. 24 HR chart check completed.
[2019-07-16 08:00] VITALS: BP 131/65
--- NOTE | 2019-07-16 08:30 | NUR ---
Treatment Plan meeting was held this a.m. with Dr. Rajput, RN, AT, CLAMP FORKLIFT OPERATOR-S and Dispersion Mixer in attendance. Plan for discharge next week. Pt. will return to [facility] at discharge.
--- NOTE | 2019-07-16 08:30 | NUR ---
Patient resting quietly with no c/o discomfort. Respirations easy and regular. Vital signs stable. No overt distress. ALAINA SOLANO
--- NOTE | 2019-07-16 08:49 | NUR ---
Patient in recliner in dining room with eyes closed and approached for Occupational Therapy evaluation. After introductions, patient became to mumble and eventually was intelligible repeating " they are out to get you". OTR will attempt at another date. Suzanne Chavarria OTR/
--- NOTE | 2019-07-16 11:42 | NUR ---
AM GROUP PT WAS PRESENT AT THE START OF GROUP BUT SOON BECAME A DISTRACTION AND DISRUPTIVE TO THE REST OF THE PATIENTS. PT WAS REMOVED BY MHW AND TAKEN INTO THE HALLWAY FOR DE ESCALATION.
[2019-07-16 13:16] LABS: BASO % 0.2 % (0.0-1.0); EOS # 0.2 10*3/uL (0.0-0.4); EOS % 2.2 % (1.0-4.0); HEMATOCRIT 44.7 % (42.0-52.0); HEMOGLOBIN 14.6 g/dl (14.0-18.0); LYMPH # 1.7 10*3/uL (1.3-4.4); LYMPH % 18.4 % (27.0-41.0); MEAN CELL VOLUME 96.1 fl (80.0-94.0); MEAN CORPUSCULAR HGB 31.4 pg (27.0-31.0); MEAN CORPUSCULAR HGB CONC 32.7 g/dl (33.0-37.0); MEAN PLATELET VOLUME 8.4 fl (9.6-12.3); MONO # 0.6 10*3/uL (0.1-1.0); MONO % 6.5 % (3.0-9.0); NEUT # 6.5 10*3/uL (2.3-7.9); NEUT % 72.4 % (47.0-73.0); PLATELET COUNT AUTOMATED 344 10*3/uL (130-400); RED BLOOD COUNT 4.65 10*6/uL (4.50-5.90); RED CELL DISTRI WIDTH 12.2 % (0-14.5)
--- NOTE | 2019-07-16 15:04 | NUR ---
PT DROWSY T/O SHIFT. REMAINS UNCOOPERATIVE WITH CARE. LABS ORDERED AND REVIEWED WITH GILBERT POLLOCK. Carolyn VELASQUEZ CNP STATES THAT VPA SEEMS HIGH AND MAY BE A CONTRIBUTING FACTOR TO PATIENT'S DROWSINESS. ALSO STATES THAT CXR LOOKS FINE. STATES TO DISCUSS WITH DR. QUACH IN THE MORNING REGARDING PT'S DEPAKOTE REGIMEN. WILL REPORT PT'S CONDITION AND MARIS'S CLINICAL FINDINGS TO DR. QUACH, PER NURSING REPORT IN AM. WILL CONTINUE TO MONITOR PT'S CONDITION. Q15 MIN MONITORING PER POLICY.
--- NOTE | 2019-07-16 15:29 | NUR ---
Clinical Updates faxed to [facility] [phone].
--- NOTE | 2019-07-16 15:34 | NUR ---
PM GROUP PT DID NOT ATTEND AFTERNOON GROUP THERAPY. PT WAS IN THE QUIET ROOM RESTING.
[2019-07-16 19:53] VITALS: BP 144/73
--- NOTE | 2019-07-16 23:02 | NUR ---
P-YELLING OUT I-REDIRECTION WITH 1:1 THERAPEUTIC INTERVENTIONS. EDUCATE AND ENCOURAGE MEDICATION COMPLIANCE R-PATIENT YELLING OUT ON OCCASION THROUGHOUT SHIFT. PATIENT REDIRECTED AND PROVIDED 1:1 THERAPEUTIC INTERVENTIONS. PATIENT PROVIDED NOURISHMENT AND FLUIDS AT HS. PATIENT IN QUIET ROOM TO HELP DECREASE STIMULI. P-CONTINUE TO ENCOURAGE MEDICATION COMPLIANCE, ENCOURAGE GROUP THERAPY WHILE AWAKE
--- NOTE | 2019-07-17 05:42 | NUR ---
PATIENT SLEPT 6 HOURS OF INTERRUPTED SLEEP THROUGHOUT SHIFT. Q 15 MINUTE CHECKS MAINTAINED. 24 HR chart check completed.
[2019-07-17 07:37] VITALS: BP 135/69
--- NOTE | 2019-07-17 09:32 | NUR ---
PT HAS INCREASED ORAL SECRETIONS. PT ENCOURAGED TO CLEAR THROAT AND SWALLOW OR SPIT OUT SECRETIONS PT UNABLE TO CLEAR THROAT ON HIS OWN. PT SUCTIONED WITH STAFF ASSIST. SMALL AMOUNT OF CLEAR FROTHY PHELGM OBTAINED. PT TOLERATED PROCEDURE WELL. WILL CONTINUE TO MONITOR PT AND SUCTION NEEDED. WILL UPDATE
--- NOTE | 2019-07-17 10:02 | NUR ---
DR. VELIZ ON UNIT TO ASSESS PT, UPDATE PROVIDED.
--- NOTE | 2019-07-17 10:11 | NUR ---
DR. LYNN ON UNIT TO ASSESS PT, UPDATE PROVIDED.
--- NOTE | 2019-07-17 11:49 | NUR ---
AM GROUP/MUSIC/BINGO PT ATTENDED BUT FELL ASLEEP ALMOST IMMEDIATLEY. MIDWAY THROUGH GROUP PT INCONTINENT OF URINE WHILE SLEEPING AND NEVER WOKE. PT REMOVED FROM DAYROOM TO BE CLEANED UP AND BROUGHT BACK IN STILL SOUND ASLEEP. PT WILL CONTINUE TO ATTEND GROUP AND BE ENCOURAGED TO PARTICIPATE TO BEST OF PT ABILITY.
--- NOTE | 2019-07-17 12:43 | NUR ---
P: PT IRRITABLE AT TIMES WITH STAFF AND PEERS. PT CAN BE INTRUSIVE/DISRUPTIVE TO MILEUI, YELLING OUT INTERMITTENTLY, DECREASED IN FREQUENCY. PT RESTLESS AT TIMES. PT SLEEPY AT TIMES THROUGHOUT THE DAY. I: PROVIDE EMOTIONAL SUPPORT AND 1:1 FOR PT TO VOICE FEELINGS, ENCOURAGE MED COMPLIANCE, PROVIDE LOW STIMULATION ENVIRONMENT FOR PT TO CALM, OFFER DIVERSIONAL ACTIVITIES R: PT CONTINUES TO YELL OUT INTERMITTENTLY WHILE AWAKE. PT ALERT TO PERSON ONLY, CONFUSION AND SHORT TERM MEMORY DEFICITS NOTED PER PT BASELINE. PT UP TO A GERICHAIR D/T UNSTEADY GAIT AND LACK OF SAFETY AWARENESS. PT REQUIRES 2 STAFF ASSIST FOR CARE AND TRANSFERS. PT INCONTINENT OF BOWEL AND BLADDER, CARE PROVIDED NEEDED. PT MED COMPLIANT WITHOUT DIFFICULTY, UNABLE TO PROVIDE MED EDUCATION D/T COGNITION. P: MONITOR PT BEHAVIORS ON Q15 MIN SAFETY CHECKS, ENCOURAGE MED COMPLIANCE, PROVIDE EMOTIONAL SUPPORT AND 1:l FOR PT TO VOICE FEELINGS, PROVIDE DIVERSIONAL ACTIVITIES, PROVIDE LOW STIMULATION ENVIRONMENT FOR PT TO CALM.
--- NOTE | 2019-07-17 15:50 | NUR ---
PM GROUP/LEISURE SKILLS PT IN ATTENDANCE [facility] THROUGH GROUP. PT IMMEDIATLEY ASKING FOR A SNACK AND DRINK. PT HARD TO UNDERSTAND BUT DID NOT BECOME AGGRESSIVE JUST REPETIVE AND LOUD. PT GIVEN ICE CREAM AND BEGAN TO HAVE TROUBLE EATING IT. THIS STAFF INFORMED NURSES WHO REMOVED PT FROM DAYROOM TO SUCTION PHLEM. PT DID NOT RETURN AT THIS TIME BUT WILL CONTINUE TO BE ENOCURAGED TO ATTEND AN DPARTICIPATE TO BEST OF ABILITY.
[2019-07-17 19:26] VITALS: BP 141/61
--- NOTE | 2019-07-17 22:52 | NUR ---
P-YELLING OUT I-REDIRECTION WITH 1:1 THERAPEUTIC INTERVENTIONS. EDUCATE AND ENCOURAGE MEDICATION COMPLIANCE R-PATIENT YELLING AT TIMES DURING SHIFT. PATIENT REDIRECTED AND PROVIDED 1:1 THERAPEUTIC INTERVENTIONS. PATIENT MEDICATION COMPLIANT. PATIENT REFUSED NOURISHMENT AT HS. PATIENT PROVIDED FLUIDS WITH MOIST NONPRODUCTIVE COUGH AT TIMES. PATIENT IN QUIET ROOM TO HELP DECREASE STIMULI. P-CONTINUE TO ENCOURAGE MEDICATION COMPLIANCE, ENCOURAGE GROUP THERAPY WHILE AWAKE
--- NOTE | 2019-07-18 05:30 | NUR ---
PATIENT SLEPT 8 HOURS OF INTERRUPTED SLEEP THROUGHOUT SHIFT. Q 15 MINUTE CHECKS MAINTAINED. 24 HR chart check completed.
[2019-07-18 07:20] VITALS: BP 119/67
--- NOTE | 2019-07-18 09:07 | NUR ---
DR. VELIZ ON UNIT TO ASSESS PT, UPDATE PROVIDED.
--- NOTE | 2019-07-18 11:32 | NUR ---
AM GROUP/REMINISCE PT SLEEPING ON AND OFF IN QUIET ROOM AT THIS TIME. PT WILL ATTEND WHEN AWAKE AND ABLE TO ENGAGE.
--- NOTE | 2019-07-18 15:25 | NUR ---
P-YELLING OUT-INTRUSIVE/DISRUPTIVE TO MILEUI I-PROVIDE EMOTIONAL SUPPORT AND 1:1 FOR PT TO VOICE FEELINGS, OFFER DIVERSIONAL ACTIVITIES, PROVIDE LOW STIMULATION ENVIRONMENT FOR PT TO CALM R: PT CONTINUES TO YELL OUT WHEN AWAKE. PT ALERT TO PERSON ONLY, CONFUSION AND SHORT TERM MEMORY DEFICITS NOTED PER PT BASELINE. NO HALLUCINATIONS OR DELUSIONS NOTED AT THIS TIME. PT UP TO A GERICHAIR, REQUIRES 2 STAFF ASSIST FOR TRANSFERS AND CARE. PT MED COMPLIANT WITH MINIMAL DIFFICULTY P: MONITOR PT BEHAVIORS ON Q15 MIN SAFETY CHECKS, ENCOURAGE MED COMPLIANCE, PROVIDE EMOTIONAL SUPPORT AND 1:1, OFFER DIVERSIONAL ACTIVITIES, PROVIDE LOW STIMULATION ENVIRONMENT FOR PT TO CALM
[2019-07-18 19:36] VITALS: BP 112/72
--- NOTE | 2019-07-18 21:10 | NUR ---
24 HR chart check completed.
--- NOTE | 2019-07-18 21:52 | NUR ---
P-YELLING OUT I-PROVIDE ASSISTANCE WITH ADLS & NEEDS. ASSESS ORIENTATION. ADMINISTER MEDS, MONITOR SLEEP R-PT HAS BEEN NAPPING INTERMITTENTLY WHILE SITTING IN A NIDIA CHAIR. ALERT TO PERSON ONLY. YELLS OUT WHEN HE NEEDS SOMETHING. SPEECH IS GARBLED & SLURRED. YELLED OUT HE HAD TO POOP. WAS INCONTIENT OF A LARGE BM & URINE. 2 STAFF ASSISTS PROVIDED. COMPLIANT TAKING HS MEDICATIONS WHOLE & MIXED IN PUDDING. OCCASIONAL LOOSE COUGH. SUCTIONED X1 GETTING SMALL AMOUNT OF MUCUS. PT IRRITABLE BUT COMPLIANT. SLEEPING IN NIDIA CHAIR NEAR NURSES STATION, P-CONTINUE TO MONITOR & PROVIDE PHYSICAL ASSISTANCE & EMOTIONAL SUPPORT NEEDED.
--- NOTE | 2019-07-19 02:36 | NUR ---
SUCTIONED FOR A MODERATE AMOUNT OF WHITE PHLEGHM.
--- NOTE | 2019-07-19 05:46 | NUR ---
PT HAS SLEPT FROM [id number].
--- NOTE | 2019-07-19 08:30 | NUR ---
Per Treatment Plan meeting this a.m. Plan for discharge when Stable with return to [facility]. Dr. Rajput requested PT/OT to see patient due to decline in Mobility.
[2019-07-19 09:05] VITALS: BP 127/50
--- NOTE | 2019-07-19 11:00 | NUR ---
DR. VELIZ ON UNIT TO ASSESS PATIENT.
--- NOTE | 2019-07-19 11:37 | NUR ---
AM GROUP/LIGHT AND MUSIC THERAPY PT IS UNABLE TO ATTEND GROUP THERAPY AT THIS TIME DUE TO COGNITIVE IMPAIRMENT, CONSTANT YELLING AND DEMANDING BEHAVIORS THAT CANNOT BE REDIRECTED. PT STAYED IN THE DAYROOM WITH MHW.
--- NOTE | 2019-07-19 12:44 | NUR ---
SPEECH PATHOLOGY Clinical swallowing evaluation completed as per orders due to questionable aspiration. Reports indicate coughing with meals. History is significant for schizoaffective disorder, bipolar disorder, developmental disorder, borderline personality, schizophrenia, nicotene dependence, COPD, GERD, A-fib, dysphagia. Patient receives a pureed diet and thin liquid. He was seen for assessment during lunchtime meal and was seated in activity room with peers. Patient was able to self feed with minimal assistance required. Overall he displayed behaviors which increase propensity toward aspiration such as vocalizing throughout the meal, consumption of large bites and distractability. Patient displayed difficulty managing his saliva and drooled frequently when eating. Congested cough was displayed intermittently during the meal. He appeared to tolerate puree and thin liquid and it is recommended that he remain on this diet. As he is at risk for aspiration, the following strategies are recommended to help improve safety with meals: eliminiate distrations during mealtime, cue patient as needed to take smaller bites and sips, cue patient to cough and reswallow as needed, cue patient to slow down during meals, suction patient as needed. Results of assessment were shared with patient's nurse who verbalized understanding. Short term follow up is recommended for education and adherence to recommendations. Refer to report in [employer] for further information. Thank you for this referral. BUTCH ROBBINS [facility]-JAVA WEB ARCHITECT
--- NOTE | 2019-07-19 15:26 | NUR ---
Shift chart check completed.
--- NOTE | 2019-07-19 15:47 | NUR ---
PM GROUP PT WAS PRESENT FOR AFTERNOON GROUP THERAPY AND PER BASELINE WAS LOUD AND DEMANDING. PT WAS A LITTLE MORE REDIRECTABLE THIS AFTERNOON. PT EXHIBITED NO AGITATION OR AGGRESSION WHILE IN GROUP.
--- NOTE | 2019-07-19 15:55 | NUR ---
Occupational Therapy evaluation completed on 3 with full eval to follow. Precautions include fall risk; bed, chair alarm,inconsistant, errative behavior patterns,assist with all ADLs and tranfers. Patient wants to use a w/c however, he has demonstrated behaviors with the w/c that are unsafe and is therefore using a recliner. No further OT indicated at this time as patient needs assist in ADLs with 1 step instructions. Recommend return to long-term care with 24 hr supervision and assist. Thank you. Kendall Chavarria OTR/l
--- NOTE | 2019-07-19 17:00 | NUR ---
PATIENT COMPLAINING OF RIGHT WRIST PAIN, NO CHANGES WITH RANGE OF MOTION OR REDNESS NOTED. PATIENT REQUESTING FOR KELLIE WRAP. ICE APPLIED TO AREA.
--- NOTE | 2019-07-19 18:17 | NUR ---
PATIENT SITTING UP IN NIDIA CHAIR WATCHING TV, NO FURTHER COMPLAINTS OF PAIN NOTED.
[2019-07-19 19:17] VITALS: BP 125/56
--- NOTE | 2019-07-19 19:35 | NUR ---
24 HR chart check completed.
--- NOTE | 2019-07-19 20:34 | NUR ---
EVENING/AROMATHERAPY/MUSIC/REMINISCE PT ATTENDED AND PARTICIPATED THE LAST HALF OF GROUP BY LISTENING AND SINIGING ALONG OT A CD WITH 50'S MUSIC. PT LOUD BUT ONLY BECAUSE PT ENJOY MUSIC SINGING ALONG. PT DID NOT BECOME AGITATED OR AGGRESSIVE AT THIS TIME. PT WILL CONTINUE TO ATTEND AN DPARTICIPATE TO BEST OF ABILITY.
--- NOTE | 2019-07-19 22:27 | NUR ---
P-ELATED MOOD, YELLING OUT I-PROVIDE ASSISTANCE WITH ADLS & NEEDS. ASSESS ORIENTATION. ADMINISTER MEDS, MONITOR SLEEP R-PT HAS BEEN SITTING IN A NIDIA CHAIR IN THE DINING ROOM. BRIGHTER AFFECT & MORE ALERT THAN PREVIOUS EVENING. ALERT TO PERSON ONLY. ELATED MOOD & WAS SINGING SONGS OUTLOUD WHILE IN GROUP THAT WERE ON THE TV PLAYING. YELLS OUT & INFORMS STAFF OF NEEDS. LAUGHING AT TIMES. SOME GRANDIOSE DELUSIONS VOICED HE SAT & WATCHED Lono & RELATES PEOPLE & OBJECTS IN THE MOVIE HIS BELONGINGS OR THAT HE IS REALLY THAT PERSON & NOT [place]. TAKING FLUIDS VERY WELL. APPETITE EXCELLENT. FEEDING SELF. SPEECH IS STILL GARBLED & SLURRED AT TIMES BUT CAN BE UNDERSTOOD MORE CLEARLY. CONTINENT OF BLADDER. 2 STAFF ASSISTS PROVIDED. COMPLIANT TAKING HS MEDICATIONS WHOLE & MIXED IN PUDDING. OCCASIONAL LOOSE COUGH. P-CONTINUE TO MONITOR & PROVIDE PHYSICAL ASSISTANCE & EMOTIONAL SUPPORT NEEDED.
--- NOTE | 2019-07-20 03:58 | NUR ---
PT HAS BEEN SITTING IN THE DINING ROOM IN A NIDIA CHAIR WITH TRAY OFF. HE HAS BEEN NAPPING INTERMITTENTLY WHILE WATCHING MOVIES THROUGHOUT THE NIGHT. TAKING FLUIDS WELL. OCCASIONAL THICK PRODUCTIVE COUGH LIGHTLY YELLOW & COUGHING UP ON HIS OWN. SPEECH IS GARBLED & SLURRED AT TIMES WHEN PT IS DROWSY. INCONTINENT OF LARGE BM & URINE. 3 STAFF ASSISTS REQUIRED. PT UNABLE TO BEAR WEIGHT ON HIS OWN.
--- NOTE | 2019-07-20 06:11 | NUR ---
PT HAS SLEPT APPROX 2 HOURS THE ENTIRE SHIFT
--- NOTE | 2019-07-20 07:07 | NUR ---
PT SUCTIONED THIS AM FOR MODERATE AMOUNT OF DF WHITE PHLEGM.
[2019-07-20 08:09] VITALS: BP 121/71
--- NOTE | 2019-07-20 08:30 | NUR ---
Treatment Plan meeting was held this a.m. with Dr. Rajput, RN, AT, SAMPLE DRILLER-S and Customer Advisor Specialist in attendance. Plan for discharge Friday with Possible discharge next week. Pt. will return to [facility] at discharge.
--- NOTE | 2019-07-20 08:33 | NUR ---
SPEECH PATHOLGY Patient was seen for treatment this am during breakfast meal. When clinician arrived he was already eating. Patient was sitting upright in leilani chair in activity room with peers. His aide reported that during the meal he coughed up thick phlegm mixed with oatmeal. During the meal patient was noted to drool excessively and display a congested cough intermittently. Patient fed himself pureed food and took thin liquid by straw. He appeared to tolerate food and liquid, but again displayed behaviors during the meal which increase his risk for aspiration. These include consumption of large bites and sips and talking/yelling excessively during the meal. Patient was frequently noted to put a bite of food in his mouth, then begin to yell, without swallowing his food. Cues were provided throughout the meal to swallow and talk after he finished his bite, as well as to take smaller bites and sips. Patient was compliant with cues provided. He continues to be easily distracted as well during the meal by others in the room and will often yell at peers however when he is left alone, he hollers out for attention. Recommend patient remain on present diet with continued cuing as needed to improve safety. His aide was educated on strategies/cues provided and verbalized understanding. His status places him at risk therefore he will need ongoing monitoring at mealtime. Recommend one more visit for education and adherence to strategies. BUTCH ROBBINS MSCCC-CUT OUT MACHINE OPERATOR
--- NOTE | 2019-07-20 08:52 | NUR ---
PHYSICAL THERAPY Physical therapy evaluation completed, 3N. Full details/evaluation to follow. High compexity determined after evaluation/chart review, [address]. PT to work on strength, gait, endurance, safety, balance. Recommend SNF at discharge. Thank you Carlee Shen, PT, DPT
--- NOTE | 2019-07-20 10:19 | NUR ---
DR. MENDOSA ON UNIT TO ASSESS PATIENT.
--- NOTE | 2019-07-20 11:32 | NUR ---
AM GROUP PT ATTENDED MORNING GROUP THERAPY AND PARTICIPATED BY SINGING ALONG WITH THE MUSIC. PT DID LITTLE YELLING OUT AND WAS LESS DEMANDING AND REDIRECTABLE. PT WENT FOR A WALK WITH THE NURSING STUDENTS AND FELL ASLEEP IN THE NIDIA CHAIR UPON RETURNING TO THE DAYROOM.
--- NOTE | 2019-07-20 12:04 | NUR ---
PT/OT recommend SNF at discharge. Faxed Assessment and Additional Clinicals to [facility].
--- NOTE | 2019-07-20 16:01 | NUR ---
PATIENT IS ALERT TO SELF WITH CONFUSION; ABLE TO VOICE NEEDS. MEMORY DEFICITS NOTED. MOOD IS STABLE, CAN BE IRRITABLE AT TIMES, YELLING OUT LESS OFTEN. NO RESPONSE TO INTERNAL STIMULI OBSERVED. NO VOICED STATEMENT OF HI/SI OR PAIN. SPEECH IS BECOMING MORE CLEAR, MORE ALERT DURING THE DAY. EASILY REDIRECTABLE. 2 PERSON ASSIST WITH ACTIVITIES OF DAILY LIVING, CONTINENT OF BOWEL AND BLADDER. SET UP FOR MEALS, INTAKES ARE GOOD WITH ENCOURAGEMENT. PATIENT ASSISTED BY THIS NURSE. PATIENT COUGHING ON DRINKS. DRINK THICKENED PER NURSING JUDGEMENT AND PATIENT DRINKING FLUIDS BETTER. CALL PLACED TO SPEECH THERAPY. PATIENT ATE PUREE FOOD GOOD. MEDICATIONS GIVEN WHOLE IN APPLESAUCE AND COMPLIANT. Q15 MINUTE SAFETY CHECKS MAINTAINED. CONTINUE TO MONITOR MOOD, OUTBURST AND COUGHING DURING MEALS. PROVIDE ONE ON ONE, REDIRECTION AND ORIENTATION TO PLACE AND SITUATION NEEDED. ENCOURAGE PATIENT TO ATTEND GROUP AND PARTICIPATE.
--- NOTE | 2019-07-20 16:34 | NUR ---
Shift chart check completed.
[2019-07-20 19:02] VITALS: BP 137/69
--- NOTE | 2019-07-20 19:56 | NUR ---
24 HR chart check completed.
--- NOTE | 2019-07-20 21:37 | NUR ---
PT HAS BEEN SITTING IN THE DINING ROOM IN A NIDIA CHAIR WITH TRAY OFF SINCE THE ONSET IF THE SHIFT NAPPING INTERMITTENTLY. ALERT TO PERSON ONLY. ATE SNACK & FLUIDS TAKEN WITH ASSISTANCE. AWAKENS EASILY WITH VERBAL PROMPTING. COMPLIANT TAKING MEDICATIONS WHOLE & MIXED IN PUDDING.
--- NOTE | 2019-07-21 | NUR ---
PT SUCTIONED FOR A MODERATE AMOUNT OF THICK, WHITE PHLEGM. PROVIDED WITH A RESPIRATORY TREATMENT AT THIS TIME.
--- NOTE | 2019-07-21 02:07 | NUR ---
PT AWAKE AT 0200. STATED HE HAS TO GO TO THE BATHROOM. TO BATHROOM WITH 3 STAFF ASSISTS. INCONTINENT OF A MODERATE AMOUNT OF STOOL. CONTINENT & INCONTINENT OF URINE. ASSITED BACK TO NIDIA CHAIR WITHOUT TRAY. STATED THAT HE DID NOT WANT TO GO TO BED. RETURNED TO SLEEP IN NIDIA CHAIR.
--- NOTE | 2019-07-21 06:23 | NUR ---
PT HAS SLEPT PAST 2114 & THROUGHOUT MOST OF THE SHIFT FOR A TOTAL OF 6-7 HOURS.
--- NOTE | 2019-07-21 07:15 | NUR ---
PHYSICAL THERAPY Patient seen this am for therapy visit and was sitting semi reclined in activity room Teresa chair upon therapist arrival. Patient identified by name / and OT therapy administrative assistant was present for observation only this session. Patient was plesant, however hard to understand at times secondary to "mumbling" voice tone. Patient transfers sit to stand CGA and ambulates with use of wh walker, > 150'x 1, CGA/SBA, demonstrating POOR walker safety with bouts of increased gait velocity. Patient needed several v/c's to slow down gait speed and to step up closer to walker to avoid over reaching for improved walker control. Patient returned to activity room Teresa chair and remained with body alarm, under U staff Supervision. Will continue per POC as tolerated, total treatment time 14 minutes. Darrion Shepherd, INTRANET DEVELOPER
[2019-07-21 08:00] VITALS: BP 136/85
--- NOTE | 2019-07-21 08:30 | NUR ---
Treatment Plan meeting was held this a.m. with Dr. Rajput, RN, AT, EXTRUSION DIE REPAIR MANAGER-S and High School Home Economics Teacher in attendance. Plan for discharge /Friday with return to [facility].
--- NOTE | 2019-07-21 10:25 | NUR ---
DR. EMNDOSA ON UNIT TO ASSESS PT, UPDATE PROVIDED.
--- NOTE | 2019-07-21 11:39 | NUR ---
AM GROUP/MUSIC AND GAMES PT ATTENDED MORNING GROUP AND PARTICIPATED BY PLAYING GAMES AND SINGING ALONG WITH MUSIC. PT EXHIBITED NO AGITATION OR AGGRESSION WHILE IN GROUP. PT WAS NOT INTRUSIVE AND DISPLAYED PATIENCE WHEN TOLD TO WAIT A MINUTE.
--- NOTE | 2019-07-21 12:13 | NUR ---
SPEECH PATHOLOGY Patient was seen for treatment this pm during lunchtime meal. Patient was in quiet room sitting upright in a chair. Excessive drooling as well as jerking movements in hands were displayed, making it difficult to eat/drink. Congested cough at rest was also displayed. Patient refused to eat or allow clinician to feed him. He stated that he was not hungry but wanted to drink. He took thin liquids by cup and straw. Assistance was provided by clinician due to noted jerking movements in upper extremities, causing him to lose visual display associate at times. He displayed no overt s/s aspiration with liquids. Patient continues to display behaviors that increase risk for aspiration and medical status with congestion and drooling further increase his risk. Patient is functioning at max. potential for therapy therefore continued dysphagia services are no longer recommended. Recommend patient remain on pureed diet and thin liquid with use of safe swallow precautions such as monitoring patient at mealtime and provide cues to take small bites/sips, eat slowly, cue to swallow before talking, cue to cough and reswallow when congestion is noted and suctioning as needed. Physician has recommended breathing treatments to improve respiratory status and medication adjustment to help decrease oral secretions. Patient's nurse was informed of recommendations and verbalized understanding. Discharge dysphagia treatment at this time. Thank you for this referral. It has been a pleasure taking part in this patient's care. BUTCH ROBBINS MSCCC-LENS GRINDING MACHINE OPERATOR
--- NOTE | 2019-07-21 15:39 | NUR ---
PM GROUP PT ATTENDED AFTERNOON GROUP THERAPY AND PARTICIPATED BY SINGING ALONG TO THE MUSIC. PT EXHIBITED NO AGITATION, AGGRESSION, OR INTRUSIVENESS. PT WAS REDIRECTABLE AND FOLLOWED DIRECTION.
[2019-07-21 19:35] VITALS: BP 134/82
--- NOTE | 2019-07-21 20:00 | NUR ---
Patient resting quietly with no c/o discomfort. Respirations easy and regular. Vital signs stable. No overt distress. ALAINA SOLANO
--- NOTE | 2019-07-21 21:55 | NUR ---
Patient resting quietly with no c/o discomfort. Respirations easy and regular. Vital signs stable. No overt distress. ALAINA SOLANO
--- NOTE | 2019-07-21 22:02 | NUR ---
PT HYPERVERBAL, DEMANDING, DISRUPTIVE. PT REDIRECTED, PROVIDED WITH 1:1, PROVIDED WITH SNACKS AND BEVERAGES, ASSISTED TO DINING ROOM TO WATCH MOVIES DIVERSIONAL RELAXATION METHOD. PT RESPONSIVE TO REDIRECTION, CONTINUES WITH HYPERVERBAL SPEECH, HOWEVER, LESS AGITATED. PT ABLE TO MAKE WANTS AND NEEDS KNOWN, ASSISTED BY STAFF. PT CALMER WHILE WATCHING A MOVIE AT THIS TIME. WILL CONTINUE TO REDIRECT AND PROVIDE DIVERSIONAL ACTIVITIES APPROPRIATE. WILL CONTINUE TO ADMINISTER MEDICATIONS PER ORDER. WILL CONTINUE TO MONITOR Q15 MIN PER POLICY.
--- NOTE | 2019-07-22 03:04 | NUR ---
24 HR chart check completed.
--- NOTE | 2019-07-22 03:04 | NUR ---
The patient has no complaints and is resting comfortably. ALAINA SOLANO
--- NOTE | 2019-07-22 06:36 | NUR ---
PT HAD 0 HOURS OF SLEEP LAST NIGHT. PT UP T/O NIGHT, PRESENTING WITH NONSENSICAL SPEECH.
--- NOTE | 2019-07-22 07:10 | NUR ---
PHYSICAL THERAPY Patient seen this am for therapy visit and was semi reclined in Quiet room [facility] chair upon therapist arrival. Patient identified by name / as OT senior agricultural assistant was present for observation only. Patient presented with bouts of "drooling" and [facility] staff stated patient had not slept much last night. Patient transfers sit to stand with MIN A and ambulated with use of wh walker, CGA, 125' x 1, demonstrating very slow anay, decreased stride and quick onset of fatigue. Patient returned to [facility] chair in Quiet room and rermained with body alarm, lap tray under [facility] staff Supervision. Will continue per POC as tolerated, total treatment time 14 minutes. Darrion Shepherd, HARBOR BOAT PILOT
--- NOTE | 2019-07-22 07:40 | NUR ---
PATIENT SITTING IN QUIET ROOM EATING BREAKFAST, YELLING OUT AT TIMES. NO VOICED COMPLAINTS. NO S/S OF DISTRESS NOTED. RESPS EVEN AND UNLABORED ON ROOM AIR.
[2019-07-22 08:03] VITALS: BP 128/75
--- NOTE | 2019-07-22 09:31 | NUR ---
P- CONFUSION. YELLING OUT AT TIMES. PREOCCUPIED WITH GOING TO THE BATHROOM AND DRINKS. I- ASSESS MOOD, ORIENTATION, SI/HI, HALLUCINATIONS, DELUSIONS OR PAIN. PROVIDE MEDICATIONS ON TIME WITH EDUCATION ON EACH. 1:1 THERAPEUTIC INTERACTION WITH EMOTIONAL SUPPORT AND VENTILATION OF FEELINGS PROVIDED. REASSURANCE AND REDIRECTION PROVIDED. ONE ASSIST WITH AMBULATING, TRANSFER, ADLS/CARE, AND TOILETING DUE TO UNSTEADY GAIT. ENCOURAGE TO GET ASSISTANCE PRIOR TO GETTING UP. PROVIDE WITH NOURISHMENT AND FLUIDS OFTEN. PROVIDE WITH LOW STIMULI/LIGHT ENVIRONEMNT WHEN YELLING OUT. PROVIDE WITH ACTIVITIES. R- REMAINS AT BASELINE CONFUSION, ALERT TO PERSON ONLY. REORIENTATION EFFECTIVE FOR SHORT AMOUNT OF TIME. DENIES SI/HI, HALLUCINATIONS OR PAIN. NO S/S OF INTERACTING WITH INTERNAL STIMULI. NO DELUSIONAL THOUGHT PROCESS NOTED. NO S/S OF DISTRESS NOTED. RESPS EVEN AND UNLABORED ON ROOM AIR. INTERACTIVE AND PARTICIPATING. REDIRECTION, REASSURANCE AND 1:1 INTERACTION EFFECTIVE WHEN YELLING OUT AND PREOCCUPIED WITH FLUIDS/BATHROOM. ONE ASSIST WITH ADLS, CARE, TOILETING, AND TRANSFERING DUE TO UNSTEADY GAIT. MAKES NEEDS KNOWN, COMPLIANT WITH GETTING ASSISTANCE PRIOR TO GETTING UP. MED COMPLIANT. NAPPING INTERMITTENTLY. EATING AND DRINKING ADEQUATELY. LOW STIMULI/LIGHT ENVIRONMENT EFFECTIVE. P- ASSESS MOOD, ORIENTATION, SI/HI, HALLUCINATIONS OR PAIN EVERY SHIFT. REORIENT WITH CONFUSION. PROVIDE REASSURANCE, REDIRECTION, 1:1 THERAPEUTIC INTERACTION WITH YELLING OUT AND PREOCCUPIED. PROVIDE WITH MEDICATIONS ON TIME WITH EDUCATION ON EACH. FALLING STAR PROGRAM IN PLACE. ONE ASSIST WITH ADLS, CARE, TOILETING, AMBULATING/TRANSFERING. PROVIDE WITH NEEDS OFTEN. Q15 MINUTE CHECKS MAINTAINED FOR SAFETY.
--- NOTE | 2019-07-22 11:36 | NUR ---
AM GROUP PT ATTENDED AND PARTICIPATED IN MORNING GROUP THERAPY. PT HAS BEEN MUCH MORE PLEASANT, INTERACTIVE AND REDIRECTABLE. PT EXHIBITED NO AGITATION OR AGGRESSION WHILE IN GROUP.
--- NOTE | 2019-07-22 12:08 | NUR ---
Shift chart check completed.
[2019-07-22 19:10] VITALS: BP 125/68
--- NOTE | 2019-07-22 22:43 | NUR ---
P-CONFUSION I-REDIRECTION WITH 1:1 THERAPEUTIC INTERVENTIONS AND PRESENT REALITY. EDUCATE AND ENCOURAGE MEDICATION COMPLIANCE R-PATIENT IN DINING AREA AT HS WATCHING THE FOOTBALL GAME WITH PEER. PATIENT MEDICATION COMPLIANT. PATIENT PROVIDED NOURISHMENT AT HS. PATIENT PROVIDED FLUIDS WITH MOIST NONPRODUCTIVE COUGH WHEN DRINKING THIN LIQUIDS. PATIENT TOLERATING NECTAR LIQUIDS WITHOUT DIFFICULTY PER NURSING MEASURE. P-CONTINUE TO ENCOURAGE MEDICATION COMPLIANCE, ENCOURAGE GROUP THERAPY WHILE AWAKE
--- NOTE | 2019-07-23 07:30 | NUR ---
PHYSICAL THERAPY Patient was semi reclined in activity room Teresa chair this am when approached for therapy visit and presented with increased Lethargic behaviour folloiwng patient care. Patient unable to follow simple commmands and was inappropriate for treatment at this time. Will continue per POC as able. Darrion Shepherd, FINISHING RANGE SUPERVISOR
[2019-07-23 07:45] VITALS: BP 133/78
--- NOTE | 2019-07-23 08:30 | NUR ---
Treatment Plan meeting with Dr. Rajput, RN, AT, [facility] and Freelance Art Director in attendance. Plan for discharge next week. Pt. will return to [facility] at discharge.
--- NOTE | 2019-07-23 08:54 | NUR ---
Left Voice Message for Yumiko in Admissions at [facility] to notify of plans to discharge next week. Clinical Updates faxed to Facility [phone].
--- NOTE | 2019-07-23 11:47 | NUR ---
Attempted to engage pt in conversation this AM as pt sat in activity room. Pt only would mumble. Pt would look up occasionally at the movie that was on the TV. Pt made no eye contact with this speech writer.
--- NOTE | 2019-07-23 11:52 | NUR ---
AM GROUP PT DID NOT ATTEND MORNING GROUP THERAPY. PT WAS SLEEPING IN A NIDIA CHAIR IN A QUIET ROOM
--- NOTE | 2019-07-23 15:19 | NUR ---
PHYSICAL THERAPY CO-SIGN I approve of the Physical Therapy notes written above. Majo Ngo PT
--- NOTE | 2019-07-23 15:29 | NUR ---
PT HAS BEEN CALM AND COOPERATIVE TODAY WITH CARE. WILL OCCASIONALLY YELL OUT, DEMANDING WITH NEEDS/WANTS. PT REDIRECTED AND PROVIDED WITH LOW STIMULATION AND DIVERSION WHEN NEEDED. PT EASILY REDIRECTED, CALMS EASILY IN LOW STIMULATION ENVIRONMENT OR WITH DIVERSIONAL ACTIVITY SUCH WATCHING TV AND MOVIES. WILL CONTINUE TO MONITOR PATIENT, REDIRECTING AND PROVIDING LOW STIMULATION APPROPRIATE. WILL CONTINUE TO ADMINISTER MEDICATIONS PRESCRIBED. WILL CONTINUE Q15 MIN MONITORING PER POLICY FOR SAFETY
[2019-07-23 19:11] VITALS: BP 126/64
--- NOTE | 2019-07-23 21:15 | NUR ---
PT IN CHAIR IN DINING ROOM, INTERMITTENTLY YELLING OUT, PT PROVIDED WITH REDIRECTION, EFFECTIVE. PT IS AWAKE AND CALM, WATCHING A MOVIE.
--- NOTE | 2019-07-24 00:39 | NUR ---
24 HR chart check completed.
--- NOTE | 2019-07-24 01:26 | NUR ---
CALLED TO ASSESS PATIENT'S LLE. IS SLIGHTLY WARM TO TOUCH, PINK IN COLOR, AND HAS SLIGHT EDEMA. DENIES PAIN OR DISCOMFORT TO AREA. RETURNED TO RECLINING CHAIR AND LEGS ELEVATED. WILL MONITOR.
--- NOTE | 2019-07-24 02:07 | NUR ---
PATIENT WAS GETTING INCREASINGLY AGGITATED, BANGING ON TABLE AND DEMANDING FOOD!! iN DINING ROOM WITH TV ON. WAS TOILETED AND CHANGED. cONTINUES TO YELL OUT AND BANG ON THE TABLE. AT 0140 MEDICATED WITH PRN ATIVAN 1 MG FOR INCREASED AGGITATION AND ANXIETY. hAS BECOME LESS LOUD. NO FURTHER BANGING ON TABLE.
--- NOTE | 2019-07-24 03:33 | NUR ---
PATIENT RESTING WITH EYES CLOSED BUT HAS BEEN UP TO BATHROOM TWICE SINCE BEING MEDICATED. rEMAINS AWAKE BUT LESS AGGITATED.
--- NOTE | 2019-07-24 05:59 | NUR ---
HAS SLEPT 4 HOURS. 1 1/2 HOURS IN BED.
[2019-07-24 07:22] VITALS: BP 135/57
--- NOTE | 2019-07-24 10:30 | NUR ---
DR. MENDOSA ON UNIT TO ASSESS PATIENT.
--- NOTE | 2019-07-24 12:01 | NUR ---
AM GROUP/LEISURE SKILLS PT ATTENDED AND PARTICIPATED TO BEST OF ABILITY. PT REQUESTING ACTIVITY'S BUT DOES NOT FOLLOW THROUGH. PT WILL LISTEN TO MUSIC AND SING ALONG. PT CHOSE A CALLIE AND ROXANN MOVIE TO WATCH AND SANG ALONG. PT USING MANNERS ENTIRE GROUP AND MORE EASILY REDIRECTABLE. PT EXPRESSED NO AGITATION OR AGGRESSION AT THIS TIME AND WILL CONTINUE TO ATTEND AND PARTICIPATE IN FUTURE RGOUP SESSIONS TO BEST OF PT ABILITY.
--- NOTE | 2019-07-24 14:57 | NUR ---
PT PLEASANT COOPERATIVE WITH HOC, MEDICATION COMPLIANT WITH ALL ASPECTS. PT LAUGHING WITH STAFF, AT TIME HYPER TALKATIVE. AT TIMES DEMANDING WITH REQUESTS BUT WILL BE JOKING AT TIMES WITH POOR SOCIAL CUES, THIS AM HE WAS VERY LOUD AND HAD TO BE REMOVED FROM THE DINING ROOM DUE TO OVER STIMULATING HIS PEERS. NO FURTHER BEHAVIORS. PT HAS AMBULATED WITH WHEELED WALKER TODAY FOR TOILETING AND MOBILITY. PERFERS TO SIT IN NIDIA CHAIR. NO SI/HI OR DELUSIONS PRESENT.
--- NOTE | 2019-07-24 15:22 | NUR ---
Shift chart check completed.
--- NOTE | 2019-07-24 15:59 | NUR ---
PM GROUP/[place]/MUSIC/BRAIN GAMES PT ATTENDED AND PARTICIPATED IN GROUP TO BEST OF ABILITY. PT ABLE TO FOCUS ON S[place] PROJECT AND LISTENING TO MUSIC AND SINGING ALONG. PT VERBAL MOST OF GROUP BUT PLEASANT AND CONTINUES TO USE MANNERS.PT WILL CONTINUE TO ATTEND AND PARTICIPATE IN FUTURE GROUP SESSIONS TO BEST OF PT ABILITY.
[2019-07-24 19:10] VITALS: BP 138/83
--- NOTE | 2019-07-24 21:09 | NUR ---
Medicated with Tylenol po prn for c/o headache. Will monitor effectiveness.
--- NOTE | 2019-07-24 21:30 | NUR ---
Patient alert to person. Patient in diningroom watching TV. No signs of any hallucinations noted. Patient pleasant and cooperative with staff at this time. Patient compliant with medications without ayn difficulty. Provided 1:1 for emotional support. Plan to continue to encourage medication compliance. Also continue to provide emotional support. Q 15 minute safety checks continued and maintained. See [facility] flowsheet for further documentation.
--- NOTE | 2019-07-24 22:10 | NUR ---
Patient yelling out,pacing with steady gait in hallway with walker,being disruptive and patient states "I am restless". Vistaril po prn given as per order for increased anxiety. Will continue to monitor behavior.
--- NOTE | 2019-07-24 23:52 | NUR ---
Patient resting quietly in gerichair without tray with eyes closed and snoring. Vistaril effective. Will continue to monitor behavior.
--- NOTE | 2019-07-25 00:13 | NUR ---
24 HR chart check completed.
--- NOTE | 2019-07-25 05:18 | NUR ---
Patient slept approx. 7 1/2 hours throughout shift with a few interruptions. Q 15 minute safety checks continued and maintained.
[2019-07-25 07:41] VITALS: BP 135/67
--- NOTE | 2019-07-25 08:00 | NUR ---
Patient resting quietly with no c/o discomfort. Respirations easy and regular. Vital signs stable. No overt distress. ALAINA SOLANO
--- NOTE | 2019-07-25 10:47 | NUR ---
DR. MENDOSA ON UNIT TO ASSESS PATIENT.
--- NOTE | 2019-07-25 16:29 | NUR ---
Shift chart check completed.
--- NOTE | 2019-07-25 18:50 | NUR ---
pt able to converse with this nurse today, making jokes, expressing wants and needs without difficulty. pt occasionally becomes demanding, but can be redirected easily without agitation. pt has propelled self in merry-walker t/o shift. medication compliant without difficulty. will maintain q15 min monitoring per policy for safety.
[2019-07-25 19:48] VITALS: BP 116/60
--- NOTE | 2019-07-25 21:41 | NUR ---
Patient alert to person. Patient in diningroom watching TV. No signs of any hallucinations noted. Patient pleasant and cooperative with staff and other patients. Patient able to converse coherently with staff and other patients. Patient compliant with medications without any difficulty. Patient ambulating in hallway with merry walker without any problems. Provided 1:1 for emotional support. Plan to continue to encourage medication compliance. Also continue to provide emotional support. Q 15 minute safety checks continued and maintained. See [facility] flowsheet for further documentation.
--- NOTE | 2019-07-26 00:49 | NUR ---
24 HR chart check completed.
--- NOTE | 2019-07-26 06:06 | NUR ---
Patient slept approx. 7 hours throughout shift one awakening. Q 15 minute safety checks continued and maintained.
--- NOTE | 2019-07-26 07:08 | NUR ---
PHYSICAL THERAPY PT SITTING IN NIDIA CHAIR IN ACTIVITY ROOM UPON ARRIVAL. PT IDENITIFED BY NAME AND ON NAME BAND. PT AGREED TO ALL PHYSICAL THERPY TREATMENT. PT PERFORMED STS TO AND FROM NIDIA CHAIR WITH USE OF BUE FOR ASSISTANCE AND SBA. PT GAIT TRAINED 30FT X6 WITH NIDIA CHAIR AND SBA AND VC'S FOR SAFETY PT IS UNSTEADY AND UNSAFE. PT PERFORMED 180 DEGREE TURN WITH VC'S FOR SAFETY AT PT TOOK TURN FAST AND UNSAFE. PT IN ACTIVITY ROOM IN NIDIA CHAIR AT END OF SESSION. PT SEEN 1:1 FOR 20MINS. KIM MANLEY PTA
[2019-07-26 07:33] VITALS: BP 131/66
--- NOTE | 2019-07-26 08:00 | NUR ---
Patient resting quietly with no c/o discomfort. Respirations easy and regular. Vital signs stable. No overt distress. ALAINA SOLANO
--- NOTE | 2019-07-26 08:15 | NUR ---
Treatment Plan meeting was held this a.m. with Dr. Rajput, RN, AT, ANALYTICS CONSULTANT-S and Dielectric Tester in attendance. Plan for discharge Friday/Fri with return to [facility].
--- NOTE | 2019-07-26 09:28 | NUR ---
DR. VELIZ ON UNIT TO ASSESS PATIENT.
--- NOTE | 2019-07-26 09:32 | NUR ---
PT IS CALM AND COOPERATIVE WITH CARE TODAY. PT REQUESTED TO BE SHAVED AFTER BREAKFAST, PT JOKINGLY STATING "I WANT TO LOOK LIKE JHON JARA". PT DENIES ANY DISCOMFORT. PT REMAINS DEMANDING WITH PHYSICAL WANTS SUCH EXTRA FOOD AND FLUIDS, PROVIDED BY STAFF. PT IS RECEPTIVE TO REDIRECTION. MEDICATION COMPLIANT WITHOUT DIFFICULTY. WILL CONTINUE TO ENCOURAGE PT TO INTERACT APPROPIRATELY WITH PEERS AND STAFF. WILL ENCOURAGE CONTINUED MEDICATION COMPLIANCE. WILL REDIRECT APPROPRIATE. Q 15 MIN MONITORING PER POLICY FOR SAFETY.
--- NOTE | 2019-07-26 10:53 | NUR ---
Spoke with Yumiko At [facility]. Advised of plans to discharge on Friday. Clinical Updates faxed to [place] [phone].
--- NOTE | 2019-07-26 11:41 | NUR ---
AM GROUP PT WAS PRESENT FOR MORNING GROUP THERAPY AND PARTICIPATED TO THE BEST OF HIS ABILITY. PT EXHIBITED NO YELLING, INTRUSIVENESS, OR ANY INAPPROPRIATE BEHAVIORS. PT HAS BEEN PLEASANT AND MUCH EASIER TO UNDERSTAND.
--- NOTE | 2019-07-26 14:39 | NUR ---
Shift chart check completed.
--- NOTE | 2019-07-26 14:53 | NUR ---
Spoke with Yumiko at [facility] and notified of plans to discharge Friday. Transportation arranged with [facility] to transport with pick and shovel man time 10:00 a.m. Call Placed to Pt. Guardian Natalia who is also his Sister and updated her on Discharge Plans. Natalia Voiced no questions or concerns. Completed Call.
--- NOTE | 2019-07-26 15:37 | NUR ---
Pt was pleasant today when interacting with this internal communications writer. Pt continues with a somewhat garbled speech. Pt displayed an appropriate sense of humor during interaction. Pt was moving about in the merry walker.
[2019-07-26 19:46] VITALS: BP 142/68
--- NOTE | 2019-07-26 21:14 | NUR ---
Patient alert to person. Patient in diningroom watching TV. No signs of any hallucinations noted. Patient pleasant and cooperative with staff and other patients. Patient able to converse coherently with staff and other patients. Patient compliant with medications without any difficulty. Provided 1:1 for emotional support. Plan to continue to encourage medication compliance. Also continue to provide emotional support. Q 15 minute safety checks continued and maintained. See [facility] flowsheet for further documentation.
--- NOTE | 2019-07-27 00:15 | NUR ---
24 HR chart check completed.
--- NOTE | 2019-07-27 07:22 | NUR ---
SPOKE WITH DR ANDERSON AT [phone] RE: PT DISCHARGE FOR THIS MORNING, NO FURTHER ORDERS AT THIS TIME.
--- NOTE | 2019-07-27 07:25 | NUR ---
PHYSICAL THERAPY Patient seen this am for therapy visit and was sitting up in activity room Teresa chair upon therapist arrival. Patient identified by name / and was joined by OT research study assistant for observation only. Patient was pleasant / talkative this morning, transfering sit to stand CGA and ambulating with use of wh walker, CGA, > 150'x 1, while demonstating bouts of increased gait velocity. Patient also was a little impulsive at times during gait ex demonstrating various speed changes without warning, requiring v/c to maintain safe gait velocity. Patient returned to activity room Teresa chair and remained semi reclined under [facility] staff Supervision. Will continue per POC as tolerated, total treatment time 14 minutes. Darroin Shepherd, EPITAXIAL REACTOR OPERATOR
[2019-07-27 07:31] VITALS: BP 138/54
--- NOTE | 2019-07-27 08:15 | NUR ---
Treatment Plan meeting with Dr. Rajput RN, AT, [facility] and Adjunct Political Science Instructor. Plan for discharge today with return to [facility]. Pt. will receive Primary Care and Mental Health Services at Facility 1 x month Or PRN. Transportation has been arranged with [facility] to transport with milk pickup truck driver time 10:00 a.m.
[2019-07-27] MEDS ORDERED: ARTANE5 M1 PO (08:26)
[2019-07-27] MEDS ORDERED: INVEGA SUSTENN156 MG IM (08:26)
[2019-07-27] MEDS ORDERED: TRIAZOLAM0.125 MG PO (08:26)
[2019-07-27] MEDS ORDERED: DIVALPROEX SOD500 MG PO (08:26)
--- NOTE | 2019-07-27 09:21 | NUR ---
NURSE TO NURSE REPORT GIVEN TO STAN AT [facility]. PT ALERT TO PERSON ONLY, CONFUSION AND SHORT TERM MEMORY DEFICITS NOTED PER PT BASELINE. PT CALM MOOD IS STABLE. NO HALLUCINATIONS OR DELUSIONS NOTED. PT DENIES ANY SUICIDAL THOUGHTS. PT UP WITH WHEELED WALKER WITH 1 STAFF ASSIST. PT CONTINENT OF BOWEL AND BLADDER, EPISODES OF INCONTINENCE NOTED, CARE PROVIDED NEEDED. SKIN INTACT, NO WOUNDS OR OPEN AREAS NOTED. PLAN IS TO MONITOR PT BEHAVIORS ON Q15 MIN SAFETY AND PREPARE PT FOR DISCHARGE TO [facility] TODAY.
--- NOTE | 2019-07-27 10:48 | NUR ---
DR. VELIZ ON UNIT TO ASSESS PT, UPDATE PROVIDED.
--- NOTE | 2019-07-27 11:47 | NUR ---
AM GROUP/CURRENT EVENTS PT ATTENDED MORNING GROUP THERAPY AND PARTICIPATED BY SINGING ALONG WITH MUSIC AND SOCIALIZING. PT WAS EAGERLY AWAITING DISCHARGE BUT WAS IN A PLEASANT MOOD.
--- NOTE | 2019-07-27 12:54 | NUR ---
Patient is discharging today returning to [facility]. Follow-up will be with Dr Martinez, visiting psychiatrist. While at [facility], pt improved. At first pt displayed difficult behaviors, was verbally loud and threatening. Pt has become pleasant and cooperative. Pt did participate in programming as he was able.
--- NOTE | 2019-07-27 13:37 | NUR ---
PT DISCHARGED TO [facility] VIA [facility]. PT BELONGINGS AND DISCHARGE PACKET SENT WITH PT.
--- NOTE | 2019-07-28 07:44 | NUR ---
PHYSICAL THERAPY CO-SIGN I approve of the Physical Therapy notes written above. Maoj Ngo PT
== END 2019-07-27 13:37 | DRG 750 ==
LOC: 3N 14:19 → EDBD 20:16 → 3N 20:16
PROVIDERS: ADMIT Psychiatry & Neurology Psychiatry
DX: F25.9 Schizoaffective disorder, unspecified (principal); F31.9 Bipolar disorder, unspecified; F60.3 Borderline personality disorder; R13.10 Dysphagia, unspecified; F79 Unspecified intellectual disabilities; J44.9 Chronic obstructive pulmonary disease, unspecified; K21.9 Gastro-esophageal reflux disease without esophagitis; F17.210 Nicotine dependence, cigarettes, uncomplicated; E66.3 Overweight; G47.00 Insomnia, unspecified; I48.0 Paroxysmal atrial fibrillation; Z88.6 Allergy status to analgesic agent; Z86.711 Personal history of pulmonary embolism; Z79.01 Long term (current) use of anticoagulants; Z79.899 Other long term (current) drug therapy; Z88.2 Allergy status to sulfonamides; Z68.29 Body mass index [BMI] 29.0-29.9, adult

== ENCOUNTER 2019-08-20 15:03 | Inpatient (IN) | payer MEDICAID ==
[~2019-08-20] VITALS: Ht 170.1 cm; Wt 75.3 kg
[~2019-08-20 15:03] MED LIST: ADVAIR 250/501 EA PO; ARTANE5 M1 PO; ATIVAN1 MG PO; BENZTROPINE MESY1 MG PO; DILTIAZEM240 M1 PO; DIVALPROEX SOD500 MG PO; ELIQUIS5 M1 PO; FLOMAX0.4 MG PO; FLONASE ALLERG9.9 ML NAS; INVEGA SUSTENN156 MG IM; LASIX20 MG PO; MAGNESIUM400 MG PO; MELATONIN3 MG PO; MULTIVITAMINS1 EAC5 PO; OMEPRAZOLE MAGN20 MG PO; POTASSIUM CHLO10 ME4 PO; PROAIR HFA8.5 GM INH; REMERON15 M2 PO; RISPERDAL3 M1 PO; SPIRIVA18 MCG PO; TRAZODONE100 MG PO; TRIAZOLAM0.125 MG PO; TYLENOL EXTRA500 MG PO; VITAMIN E400 UNI2 PO; ZOFRAN4 MG PO; ZYPREXA10 M2 IM
[2019-08-20] MEDS ORDERED: HYOSCYAMINE0.125 M3 SL (18:07)
[2019-08-20] MEDS ORDERED: SEROQUEL50 MG PO (18:13)
[2019-08-20] MEDS ORDERED: SODIUM CHLORIDE1 GM PO (18:16)
[2019-08-20] MEDS ORDERED: DOXEPIN50 MG PO (18:17)
[2019-08-20] MEDS ORDERED: SPIRIVA18 MCG PO (18:55)
[2019-08-20] MEDS ORDERED: TRIAZOLAM0.125 MG PO (18:56)
[2019-08-21 11:14] VITALS: BP 125/89
[2019-08-21 12:16] VITALS: BP 125/89
[2019-08-22 07:21] LABS: BASO % 0.3 % (0.0-1.0); EOS # 0.4 10*3/uL (0.0-0.4); EOS % 6.4 % (1.0-4.0); HEMATOCRIT 44.5 % (42.0-52.0); HEMOGLOBIN 13.9 g/dl (14.0-18.0); LYMPH # 1.6 10*3/uL (1.3-4.4); LYMPH % 22.7 % (27.0-41.0); MEAN CELL VOLUME 100.2 fl (80.0-94.0); MEAN CORPUSCULAR HGB 31.3 pg (27.0-31.0); MEAN CORPUSCULAR HGB CONC 31.2 g/dl (33.0-37.0); MEAN PLATELET VOLUME 9.8 fl (9.6-12.3); MONO # 0.7 10*3/uL (0.1-1.0); MONO % 9.5 % (3.0-9.0); NEUT # 4.2 10*3/uL (2.3-7.9); PLATELET COUNT AUTOMATED 286 10*3/uL (130-400); RED BLOOD COUNT 4.44 10*6/uL (4.50-5.90); RED CELL DISTRI WIDTH 13.3 % (0-14.5); WHITE BLOOD COUNT 6.9 10*3/uL (4.8-10.8)
[2019-08-22 07:37] LABS: ALBUMIN 3.3 gm/dl (3.1-4.5); ALKALINE PHOSPHATASE 59 U/L (45-117); BUN 21 mg/dl (7-24); CHLORIDE 111 mmol/L (98-107); CHOLESTEROL 136 mg/dL (<200); CREATININE 0.58 mg/dL (0.70-1.30); HDL CHOLESTEROL 45 mg/dl (40-60); LDL CHOLESTEROL 75 mg/dL (9-159); POTASSIUM 4.5 mmol/L (3.5-5.1); SGOT/AST 21 IU/L (3-35); SGPT/ALT 21 U/L (12-78); SODIUM 146 mmol/L (136-145); TOTAL PROTEIN 7.6 gm/dL (6.4-8.2); TRIGLYCERIDES 79 mg/dl (<150); VLDL CHOLESTEROL 16 mg/dL (6-40)
[2019-08-22 07:43] LABS: VALPROIC ACID (DEPAKENE) 51.1 ug/ml (50-100)
[2019-08-22 08:27] LABS: VITAMIN D, 25-HYDROXY 45.6 ng/mL (30-100)
[2019-08-22 08:29] VITALS: BP 115/71
[2019-08-22 20:00] VITALS: BP 127/80
[2019-08-23 08:01] VITALS: BP 129/62
[2019-08-23 19:41] VITALS: BP 139/58
[2019-08-24 05:02] LABS: BILIRUBIN NEGATIVE (NEGATIVE); BLOOD NEGATIVE (NEGATIVE); CLARITY CLEAR (CLEAR); COLOR YELLOW (YELLOW); GLUCOSE NEGATIVE (NEGATIVE); KETONE NEGATIVE (NEGATIVE); LEUKO ESTERASE NEGATIVE (NEGATIVE); NITRITE NEGATIVE (NEGATIVE); SPECIFIC GRAVITY <= 1.005 (1.005-1.030); UROBILINOGEN 0.2 E.U./dl (0.2-1.0)
[2019-08-24 05:10] LABS: BACTERIA TRACE; EPITHELIAL CELLS 0-2
[2019-08-24 07:43] VITALS: BP 129/67
[2019-08-24 20:00] VITALS: BP 125/70
[2019-08-25 07:28] VITALS: BP 137/72
[2019-08-25 19:52] VITALS: BP 124/78
[2019-08-26 08:00] VITALS: BP 137/67
[2019-08-26 19:48] VITALS: BP 136/72
[2019-08-27 08:51] VITALS: BP 127/72
[2019-08-27 20:01] VITALS: BP 129/63
[2019-08-28 07:58] VITALS: BP 130/60
[2019-08-28 19:51] VITALS: BP 108/96
[2019-08-29 07:32] VITALS: BP 125/86
[2019-08-29 19:53] VITALS: BP 127/64
[2019-08-30 07:52] VITALS: BP 137/89
[2019-08-30 19:54] VITALS: BP 127/85
[2019-08-31 07:48] VITALS: BP 139/88
[2019-08-31 20:03] VITALS: BP 141/77
[2019-09-01 06:20] LABS: ALBUMIN 3.4 gm/dl (3.1-4.5); ALKALINE PHOSPHATASE 63 U/L (45-117); BUN 21 mg/dl (7-24); CHLORIDE 102 mmol/L (98-107); CREATININE 0.53 mg/dL (0.70-1.30); SGOT/AST 12 IU/L (3-35); SGPT/ALT 18 U/L (12-78); SODIUM 140 mmol/L (136-145); TOTAL PROTEIN 7.5 gm/dL (6.4-8.2)
[2019-09-01 07:46] VITALS: BP 132/81
[2019-09-01 19:23] VITALS: BP 136/80
[2019-09-02 07:28] VITALS: BP 127/69
[2019-09-02 19:33] VITALS: BP 120/69
[2019-09-03 19:30] VITALS: BP 130/79
[2019-09-04 07:39] VITALS: BP 127/63
[2019-09-04 19:40] VITALS: BP 112/72
[2019-09-05 07:46] VITALS: BP 131/79
[2019-09-05 19:35] VITALS: BP 127/63
[2019-09-06 07:18] VITALS: BP 97/56
[2019-09-06 08:23] VITALS: BP 110/70
[2019-09-06 19:41] VITALS: BP 106/73
[2019-09-07 07:36] VITALS: BP 127/76
[2019-09-07 19:57] VITALS: BP 112/57
[2019-09-08 19:47] VITALS: BP 143/65
[2019-09-09 07:30] VITALS: BP 118/78
[2019-09-09 19:34] VITALS: BP 116/72
[2019-09-10 08:48] VITALS: BP 122/62
[2019-09-10 19:52] VITALS: BP 121/69
[2019-09-11 07:32] VITALS: BP 133/60
[2019-09-11 19:42] VITALS: BP 138/76
[2019-09-12 07:45] VITALS: BP 134/70
[2019-09-12 20:00] VITALS: BP 138/62
[2019-09-13 07:57] VITALS: BP 132/71
[2019-09-13 19:23] VITALS: BP 134/76
[2019-09-14 07:49] VITALS: BP 130/76
[2019-09-14] MEDS ORDERED: DIAZEPAM5 MG PO (11:07)
[2019-09-14] MEDS ORDERED: ATARAX,VISTARIL50 MG PO (11:07)
[2019-09-14] MEDS ORDERED: DIVALPROEX SOD500 M1 PO (11:07)
[2019-09-14] MEDS ORDERED: IMIPRAMINE HCL50 MG PO (11:07)
[2019-09-14 17:57] VITALS: BP 153/73
[2019-09-14 18:46] VITALS: BP 128/65
[2019-09-14 19:17] LABS: PHOSPHOROUS 3.4 mg/dL (2.5-4.9); TROPONIN I < 0.015 ng/ml (<0.045)
[2019-09-14 19:59] VITALS: BP 128/65
[2019-09-15 08:25] VITALS: BP 134/54
[2019-09-15 20:25] VITALS: BP 142/80
[2019-09-16 07:46] VITALS: BP 124/64
[2019-09-16] MEDS ORDERED: INVEGA SUSTENN156 MG IM (10:42)
[2019-09-16] MEDS ORDERED: ARTANE5 M1 PO (10:42)
[2019-09-16] MEDS ORDERED: LASIX40 MG PO (10:56)
== END 2019-09-16 13:00 | DRG 750 ==
LOC: 3N 15:03
PROVIDERS: Nurse Practitioner Women's Health; Student in an Organized Health Care Education/Training Program; ADMIT Psychiatry & Neurology Psychiatry
DX: F25.0 Schizoaffective disorder, bipolar type (principal); E66.3 Overweight; J44.9 Chronic obstructive pulmonary disease, unspecified; F79 Unspecified intellectual disabilities; F63.81 Intermittent explosive disorder; K21.9 Gastro-esophageal reflux disease without esophagitis; F41.9 Anxiety disorder, unspecified; F17.210 Nicotine dependence, cigarettes, uncomplicated; I48.0 Paroxysmal atrial fibrillation; G47.00 Insomnia, unspecified; Z68.26 Body mass index [BMI] 26.0-26.9, adult; Z91.14 Patient's other noncompliance with medication regimen; Z88.6 Allergy status to analgesic agent; Z88.1 Allergy status to other antibiotic agents; Z88.8 Allergy status to other drugs, medicaments and biological substances; Z79.899 Other long term (current) drug therapy